=== PATIENT | female | born 1955 | race Caucasian/White ===

== ENCOUNTER 2016-10-31 18:08 | Inpatient (IN) | payer MEDICARE ==
[~2016-10-31] VITALS: Ht 167.6 cm; Wt 77.1 kg
[2016-10-31] VITALS (15 sets, daily range): BP systolic 76–140; BP diastolic 45–92; PULSE 75–87; RESP 15–20; TEMP 97–97.9; O2SAT 92–99
[2016-10-31] MEDS ORDERED: SODIUM CHLORIDE 0.9% FLUSH 10 ML FLUSH IVF PRN ×2 (18:15→21:00)
[2016-10-31 18:43] LABS: AUTOMATED NEUTROPHIL # 12.7 TH/MM3 (1.8-7.7); BASOPHIL % 0.1 % (0.0-2.0); EOSINOPHIL % 0.1 % (0.0-4.0); LYMPHOCYTE # 0.7 TH/MM3 (1.0-4.8); MEAN CELL VOLUME 91.2 FL (80.0-100.0); MEAN CORPUSCULAR HEMOGLOBIN 28.9 PG (27.0-34.0); MEAN CORPUSCULAR HGB CONC 31.7 % (32.0-36.0); NEUT % 89.8 % (16.0-70.0); PLATELET COUNT 217 TH/MM3 (150-450); RED BLOOD COUNT 3.73 MIL/MM3 (4.00-5.30); RED CELL DISTRIBUTION WIDTH 17.8 % (11.6-17.2); WHITE BLOOD COUNT 14.2 TH/MM3 (4.0-11.0)
--- NOTE | 2016-10-31 18:45 | PD ---
HPI . Diarrhea Chief Complaint: GI Complaint Time Seen by Provider: 18:23 Travel History International Travel<30 days: No Contact w/Intl Traveler<30days: No Traveled to known affect area: No History of Present Illness HPI This patient presents with an approximately 24-hour history of diarrhea. She is unable to quantify the diarrhea. She states that she is having very small but frequent stools. She is complaining with diffuse abdominal pain. She denies fever. She denies nausea or vomiting. She denies any urinary tract symptoms. She states that her diarrhea was preceded by constipation. EMS reports hypotension on their arrival. They treated her with a liter of fluid prior to arrival here. They also gave her Zofran. [facility] Past Medical History Medical History: Denies Significant Hx Past Surgical History Surgical History: No Previous Surgery Social History Alcohol Use: No Tobacco Use: Yes Substance Use: No Allergies-Medications (Allergen,Severity, Reaction): Coded Allergies: No Known Allergies (Unverified , 10/31/16) Reported Meds & Prescriptions Reported Meds & Active Scripts Active No Active Prescriptions or Reported Medications Review of Systems Except as stated in HPI: all other systems reviewed are Neg General / Constitutional: No: Fever, Chills Cardiovascular: No: Chest Pain or Discomfort Respiratory: No: Shortness of Breath Gastrointestinal: Positive: Diarrhea, Abdominal Pain, No: Nausea, Vomiting Genitourinary: No: Urgency, Frequency, Dysuria Physical Exam Narrative GENERAL: This patient appears very sleepy. Her speech is a little bit slurred. She is oriented. EMS reports Zofran prior to arrival but no mind altering medications. SKIN: warm/dry. Pale. HEAD: Normocephalic. EYES: Pupils equal and round. No scleral icterus. No injection or drainage. ENT: No nasal bleeding or discharge. Mucous membranes pink and moist. NECK: Trachea midline. Full range of motion without pain.. CARDIOVASCULAR: Regular rate and rhythm. RESPIRATORY: No accessory muscle use. Clear to auscultation. Breath sounds equal bilaterally. GASTROINTESTINAL: Abdomen soft. Diffusely tender. Bowel sounds present. Nondistended. RECTAL: Brown stool. There is no fecal impaction. MUSCULOSKELETAL: No obvious deformities. NEUROLOGICAL: Awake and alert. No obvious cranial nerve deficits. Motor grossly within normal limits. Normal speech. PSYCHIATRIC: Appropriate mood and affect; insight and judgment normal. Data Data Last Documented VS Vital Signs Date Time Temp Pulse Resp B/P (MAP) Pulse Ox O2 Delivery O2 Flow Rate FiO2 10/31/16 18:18 97.0 81 18 105/55 (72) 97 Orders Orders Complete Blood Count With Diff (10/31/16 18:15) Comprehensive Metabolic Panel (10/31/16 18:15) Urinalysis - C+S If Indicated (10/31/16 18:15) Iv Access Insert/Monitor (10/31/16 18:15) Sodium Chloride 0.9% Flush (Ns Flush) (10/31/16 18:15) Alcohol (Ethanol) (10/31/16 18:24) Ct Abd/Pel W Iv Contrast(Rout) (10/31/16 18:25) C Diff Toxin Pcr (10/31/16 18:34) Enteric Path (Stool) (10/31/16 18:34) Labs Laboratory Tests Test 10/31/16 18:30 MDM Medical Decision Making Medical Screen Exam Complete: Yes Emergency Medical Condition: Yes Medical Record Reviewed: Yes (this patient has never been here before.) Differential Diagnosis Differential diagnosis of diarrhea includes but is not limited to early enteritis, bacterial enteritis, antibiotic induced diarrhea, irritable bowel syndrome Narrative Course This patient presents with diarrhea. She was reportedly hypotensive prior to arrival. Her stool is Hemoccult positive. Routine labs have been ordered. She is receiving IV fluids. CT of the abdomen and pelvis has been ordered to rule out diverticulitis or colitis. Her care is being turned over to the oncoming provider at 7 PM. [facility] Point of Care Internal Pos. & Neg. Controls: Passed Fecal Specimen Occult Blood: Positive Diagnosis Primary Impression: Diarrhea Qualified Codes: R19.7 - Diarrhea, unspecified Additional Impressions: Hypotension Qualified Codes: I95.9 - Hypotension, unspecified GI bleed Qualified Codes: K92.2 - Gastrointestinal hemorrhage, unspecified Scripts No Active Prescriptions or Reported Meds Maryann Pederson MD Oct 31, 2016 18:45
[2016-10-31 18:47] LABS: HEMO FLAGS AUTO DIFF
[2016-10-31 19:04] LABS: ANION GAP 14 MEQ/L (5-15); AST (GOT) 37 U/L (15-37); BICARBONATE 12.9 MEQ/L (21.0-32.0); BLOOD UREA NITROGEN 58 MG/DL (7-18); CHLORIDE 113 MEQ/L (98-107); GLOMERULAR FILTRATION RATE 12 ML/MIN (>89); POTASSIUM 5.9 MEQ/L (3.5-5.1); SODIUM (NA) 140 MEQ/L (136-145)
[2016-10-31 19:05] LABS: ALT (GPT) 20 U/L (10-53)
[2016-10-31 19:07] LABS: ALKALINE PHOSPHATASE 663 U/L (45-117); TOTAL BILIRUBIN ADULT 0.5 MG/DL (0.2-1.0)
--- NOTE | 2016-10-31 19:26 | PD ---
Physical Exam Date Seen by Provider: Oct 31, 2016 Time Seen by Provider: 19:18 Narrative Accepted in transfer of care from Data Data Last Documented VS Vital Signs Date Time Temp Pulse Resp B/P (MAP) Pulse Ox O2 Delivery O2 Flow Rate FiO2 10/31/16 20:56 82 19 110/69 (83) 99 Room Air 10/31/16 18:18 97.0 Orders Orders Complete Blood Count With Diff (10/31/16 18:15) Comprehensive Metabolic Panel (10/31/16 18:15) Urinalysis - C+S If Indicated (10/31/16 18:15) Iv Access Insert/Monitor (10/31/16 18:15) Sodium Chloride 0.9% Flush (Ns Flush) (10/31/16 18:15) Alcohol (Ethanol) (10/31/16 18:24) C Diff Toxin Pcr (10/31/16 18:34) Enteric Path (Stool) (10/31/16 18:34) Blood Culture (10/31/16 19:18) Lactic Acid Sepsis Protocol (10/31/16 19:18) Sodium Chlor 0.9% 1000 Ml Inj (Ns 1000 M (10/31/16 19:30) Sodium Chlor 0.9% 1000 Ml Inj (Ns 1000 M (10/31/16 19:30) Ammonia (10/31/16 19:18) Ct Abd/Pel W/O Iv Contrast (10/31/16 ) Act Partial Throm Time (Ptt) (10/31/16 19:18) Prothrombin Time / Inr (Pt) (10/31/16 19:18) Piperacil-Tazo 4.5 Gm Premix (Zosyn 4.5 (10/31/16 19:30) Electrocardiogram (10/31/16 ) Type And Screen (10/31/16 19:26) Urinary Catheter Insert/Apply (10/31/16 19:55) Vancomycin Inj (Vancomycin Inj) (10/31/16 20:00) Sodium Chlor 0.9% 1000 Ml Inj (Ns 1000 M (10/31/16 20:00) Arterial Blood Gas (Abg) (10/31/16 ) Sodium Bicarbonate 8.4% Inj (Sodium Bica (10/31/16 20:00) Norepinephrine-Dextrose Drip (Levophed-D (10/31/16 20:00) Terbutaline Inj (Brethine Inj) (10/31/16 20:00) Thiamine Inj (Thiamine Inj) (10/31/16 20:00) Norepinephrine Inj (Levophed Inj) (10/31/16 20:12) Sodium Bicarbonate 8.4% Inj (Sodium Bica (10/31/16 20:17) Urine Culture (10/31/16 20:00) Sodium, Random Urine (10/31/16 20:11) Creatinine, Random Urine (10/31/16 20:11) Urine For Eosinophils (10/31/16 20:11) Creatine Kinase (Cpk) (10/31/16 20:11) Admit Order (Ed Use Only) (10/31/16 ) ^ Saline Lock (10/31/16 20:54) Resp Oxygen Gonzales C Titrat 1-4 L (10/31/16 ) Notify Dr: Other (10/31/16 20:54) Sodium Chloride 0.9% Flush (Ns Flush) (10/31/16 21:00) Sodium Chloride 0.9% Flush (Ns Flush) (10/31/16 21:00) Lipase (10/31/16 20:11) Magnesium (Mg) (10/31/16 20:11) Labs Laboratory Tests Test 10/31/16 18:30 10/31/16 18:45 10/31/16 19:30 10/31/16 20:00 White Blood Count 14.2 TH/MM3 Red Blood Count 3.73 MIL/MM3 Hemoglobin 10.8 GM/DL Hematocrit 34.0 % Mean Corpuscular Volume 91.2 FL Mean Corpuscular Hemoglobin 28.9 PG Mean Corpuscular Hemoglobin Concent 31.7 % Red Cell Distribution Width 17.8 % Platelet Count 217 TH/MM3 Mean Platelet Volume 9.7 FL Neutrophils (%) (Auto) 89.8 % Lymphocytes (%) (Auto) 5.0 % Monocytes (%) (Auto) 5.0 % Eosinophils (%) (Auto) 0.1 % Basophils (%) (Auto) 0.1 % Neutrophils # (Auto) 12.7 TH/MM3 Lymphocytes # (Auto) 0.7 TH/MM3 Monocytes # (Auto) 0.7 TH/MM3 Eosinophils # (Auto) 0.0 TH/MM3 Basophils # (Auto) 0.0 TH/MM3 CBC Comment AUTO DIFF Differential Total Cells Counted 100 Neutrophils % (Manual) 55 % Band Neutrophils % 38 % Lymphocytes % 1 % Monocytes % 5 % Neutrophils # (Manual) 13.3 TH/MM3 Metamyelocytes 1 % Differential Comment FINAL DIFF MANUAL Platelet Estimate NORMAL Platelet Morphology Comment NORMAL Red Cell Morphology Comment NORMAL Blood Urea Nitrogen 58 MG/DL Creatinine 3.88 MG/DL Random Glucose 72 MG/DL Total Protein 6.9 GM/DL Albumin 2.6 GM/DL Calcium Level 8.7 MG/DL Alkaline Phosphatase 663 U/L Aspartate Amino Transf (AST/SGOT) 37 U/L Alanine Aminotransferase (ALT/SGPT) 20 U/L Total Bilirubin 0.5 MG/DL Sodium Level 140 MEQ/L Potassium Level 5.9 MEQ/L Chloride Level 113 MEQ/L Carbon Dioxide Level 12.9 MEQ/L Anion Gap 14 MEQ/L Estimat Glomerular Filtration Rate 12 ML/MIN Ethyl Alcohol Level LESS THAN 3 MG/DL Stool C. difficile Toxin (PCR) NEGATIVE Stl C. difficile Toxin Epiderm 027 PRESUMPTIVE NEGATIVE Prothrombin Time 11.8 SEC Prothromb Time International Ratio 1.1 RATIO Activated Partial Thromboplast Time 29.5 SEC Lactic Acid Level 2.6 mmol/L Ammonia 19 MCMOL/L Urine Color DARK-YELLOW Urine Turbidity HAZY Urine pH 5.0 Urine Specific [place] 1.025 Urine Protein 30 mg/dL Urine Glucose (UA) NEG mg/dL Urine Ketones NEG mg/dL Urine Occult Blood NEG Urine Nitrite NEG Urine Bilirubin NEG Urine Urobilinogen 2.0 MG/DL Urine Leukocyte Esterase SMALL Urine RBC 3 /hpf Urine WBC 9 /hpf Urine Bacteria FEW /hpf Urine Mucus FEW /lpf Microscopic Urinalysis Comment CULTURE INDICATED MDM Medical Record Reviewed: Yes Supervised Visit with MUSHTAQ: No Interpretation(s) CBC & BMP Diagram 10/31/16 18:30 Total Protein 6.9, Albumin 2.6 L, Calcium Level 8.7, Alkaline Phosphatase 663 H , Aspartate Amino Transf (AST/SGOT) 37, Alanine Aminotransferase (ALT/SGPT) 20, Total Bilirubin 0.5 Vital Signs Date Time Temp Pulse Resp B/P (MAP) Pulse Ox O2 Delivery O2 Flow Rate FiO2 10/31/16 20:56 82 19 110/69 (83) 99 Room Air 10/31/16 20:45 84 17 127/92 (104) 97 Room Air 10/31/16 20:35 87 18 115/65 (82) 96 Room Air 10/31/16 20:30 86 18 125/73 (90) 97 Room Air 10/31/16 20:22 80 79/62 10/31/16 20:20 81 15 79/62 (68) 95 Room Air 10/31/16 20:00 80 19 76/46 (56) 92 Room Air 10/31/16 19:50 78 19 82/45 (57) 97 Room Air 10/31/16 19:21 19 10/31/16 19:10 76 19 93/53 (66) 95 Room Air 10/31/16 19:05 75 18 86/56 (66) 95 Room Air 10/31/16 18:18 97.0 81 18 105/55 (72) 97 Last Impressions Abdomen/Pelvis CT 10/31/16 0000 Signed Impressions: Service Date/Time: Monday, October 31, 2016 20:39 - CONCLUSION: 1. Abnormal bowel gas pattern with areas of wall thickening involving the ascending, transverse and portions of the descending colon. The findings are most consistent with colitis. 2. Bilateral renal calculi left greater than right as well as apparent multiple stones in the distal right ureter with no definite hydronephrosis. 3. Soft tissue mass in the right side of the pelvis agent 3.8 x 2.8 cm in diameter faint areas of calcification. This is nonspecific . 4. Sclerotic foci in the right ilium which is nonspecific. This could represent a large bone island. 5. The study is suboptimal secondary to lack of intravenous and oral contrast. Satinder Joseph MD Differential Diagnosis Accepted in transfer of care from ;please refer to her dictation Narrative Course Accepted in transfer of care from Sepsis Criteria SIRS Criteria (2 or more): WBC > 92605, < 4000 or > 10% bands Sepsis Criteria (SIRS+source): Infect source susp/known (GI) Physician Communication Physician Communication all placed to grounds caretaker; discussed with and seen/accepted for admission by Dr Gaxiola Diagnosis Primary Impression: Diarrhea Qualified Codes: R19.7 - Diarrhea, unspecified Additional Impressions: GI bleed Qualified Codes: K92.2 - Gastrointestinal hemorrhage, unspecified Hypotension Qualified Codes: I95.9 - Hypotension, unspecified Sepsis Qualified Codes: A41.9 - Sepsis, unspecified organism Acute renal failure Qualified Codes: N17.9 - Acute kidney failure, unspecified Hyperkalemia Metabolic acidosis Admitting Information Admitting Physician Requests: Admit Scripts No Active Prescriptions or Reported Meds Devorah Phipps MD Oct 31, 2016 19:26
[2016-10-31] MEDS ORDERED: PIPERACIL-TAZO 4.5 GM PREMIX 100 ML IV ONE (19:30)
[2016-10-31] MEDS ORDERED: SODIUM CHLOR 0.9% 1000 ML INJ 1,000 ML IV ONE ×4 (19:30→21:30)
[2016-10-31 19:32] LABS: BANDS 38 % (0-6); METAMYELOCYTES 1 % (0-1); NEUTROPHIL # MANUAL DIFF 13.3 TH/MM3 (1.8-7.7); POLYS (SEG NEUTROPHILS) 55 % (16-70); WBC DIFF SAMPLE 100
[2016-10-31 19:33] LABS: PLATELET ESTIMATE SMEAR NORMAL (NORMAL); PLATELET MORPHOLOGY NORMAL (NORMAL); SCAN/DIFF FINAL DIFF MANUAL
[2016-10-31 19:52] LABS: C. DIFF EPI 027 PRESUMPTIVE NEGATIVE (NEGATIVE)
[2016-10-31] MEDS ORDERED: VANCOMYCIN INJ 1,000 MG in SODIUM CHLOR 0.9% 250 ML INJ 250 ML IV ONE (20:00)
[2016-10-31] MEDS ORDERED: NOREPINEPHRINE-DEXTROSE DRIP 250 ML IV PRN (20:00)
[2016-10-31] MEDS ORDERED: THIAMINE INJ 100 MG in SODIUM CHLORIDE 0.9% INJ 100 ML IV ONE (20:00)
[2016-10-31] MEDS ORDERED: SODIUM BICARBONATE 8.4% INJ 50 MEQ/50 ML SYR IV PUSH ONE (20:00)
[2016-10-31] MEDS ORDERED: TERBUTALINE INJ 1 MG/ML AMP SQ PRN (20:00)
[2016-10-31] MEDS ORDERED: NOREPINEPHRINE 4 MG/4 ML AMP ONE (20:12)
[2016-10-31 20:15] LABS: APTT (PATIENT) 29.5 SEC (24.3-30.1); INTERNATIONAL NORMALIZED RATIO 1.1 RATIO; PROTHROMBIN TIME - PATIENT 11.8 SEC (9.8-11.6)
[2016-10-31] MEDS ORDERED: SODIUM BICARBONATE 8.4% INJ 50 MEQ/50 ML SYR ONE (20:17)
[2016-10-31 20:33] LABS: BLOOD, URINE NEG (NEG); GLUCOSE,URINE NEG (NEG); KETONE, URINE NEG (NEG); MUCUS URINE FEW /lpf (OCC); NITRITE,URINE NEG (NEG)
[2016-10-31 20:34] LABS: BACTERIA, URINE FEW /hpf; COMMENT (UR) CULTURE INDICATED; CULTURE IF INDICATED CULTURE INDICATED; URINE COLOR DARK-YELLOW (YELLW/STRAW)
[2016-10-31] MEDS ORDERED: SODIUM CHLORIDE 0.9% FLUSH 10 ML FLUSH IV FLUSH SCH (21:00)
--- NOTE | 2016-10-31 21:12 | RADRPT ---
EXAM DATE/TIME: 10/31/2016 20:39 [facility] COMPARISON: No previous studies available for comparison. INDICATIONS : Abdominal pain and diarrhea. ORAL CONTRAST: No oral contrast ingested. RADIATION DOSE: 9.96 CTDIvol (mGy) MEDICAL HISTORY : None SURGICAL HISTORY : None. ENCOUNTER: Initial ACUITY: 1 day PAIN SCALE: 7/10 LOCATION: abdomen TECHNIQUE: Volumetric scanning of the abdomen and pelvis was performed. Using automated exposure control and ad justment of the mA and/or kV according to patient size, radiation dose was kept as low as reasonably achievable to obtain optimal diagnostic quality images. DICOM format image data is available electro nically for review and comparison. FINDINGS: LOWER LUNGS: There is atelectasis in the dependent portions of the lung bases. LIVER: Homogeneous density without lesion. There is no dilation of the biliary tree. Status post cholecyste ctomy. SPLEEN: Normal size without lesion. PANCREAS: Within normal limits. KIDNEYS: Normal in size and shape. There is no mass or hydronephrosis. There are multiple nonobstructing left renal calculi. 2 of the stones measure 6-7 mm in size and are multiple smaller calculi. They're nono bstructing small right renal calculi. The ureters appear unremarkable. There are multiple apparent sm all distal right ureteral calculi. Best seen on the coronal image there are approximately 4 distal ri ght ureteral calculi measuring approximately 2-5 mm in size. The proximal mid ureter are nondilated. ADRENAL GLANDS: Within normal limits. VASCULAR: There is no aortic aneurysm. BOWEL/MESENTERY: No oral contrast was given limiting the sensitivity of the exam there is colonic wall thickening invo lving portions of the ascending colon, transverse colon and proximal descending colon. There is liqui d stool throughout the colon. There multiple loops of nondilated air-containing small bowel with mult iple small air-fluid levels. There is no free fluid or free air. There is a small hiatal hernia. ABDOMINAL WALL: Within normal limits. RETROPERITONEUM: There is no lymphadenopathy. BLADDER: A Agustin catheter is present. There is a small air-fluid level. REPRODUCTIVE: Within normal limits. INGUINAL: There is no lymphadenopathy or hernia. MUSCULOSKELETAL: Osteopenia, degenerative change and scoliosis. The patient is status post left hip arthroplasty. Ther e is a 2.3 x 1.7 cm sclerotic foci in the right ilium. CONCLUSION: 1. Abnormal bowel gas pattern with areas of wall thickening involving the ascending, transverse and p ortions of the descending colon. The findings are most consistent with colitis. 2. Bilateral renal calculi left greater than right as well as apparent multiple stones in the distal right ureter with no definite hydronephrosis. 3. Soft tissue mass in the right side of the pelvis agent 3.8 x 2.8 cm in diameter faint areas of kd cification. This is nonspecific . 4. Sclerotic foci in the right ilium which is nonspecific. This could represent a large bone island. 5. The study is suboptimal secondary to lack of intravenous and oral contrast. Satinder Joseph MD on October 31, 2016 at 21:01 Board Certified Radiologist. This report was verified electronically.
--- NOTE | 2016-10-31 21:22 | HHI.HP ---
HPI Service Critical Care Medicine Primary Care Physician Unknown Admission Diagnosis sepsis' ARF; metabolic acidosis; hyperkalemia; colits Diagnosis: Travel History International Travel<30 Days: No Contact w/Intl Traveler <30 Da: No Traveled to Known Affected Are: No History of Present Illness History obtained through discussion with patient, patient's mother, ED physician. Patient is slightly lethargic and somewhat limited in the medical information that she is able to provide. 61 yo female with PMH of rheumatoid arthritis for which she is on prednisone and disease modifying therapy (Leflunomide), hypothyroidism, hypertension, hyperlipidemia who presents to [facility] emergency department for 1 day history of severe diarrhea. She began having abdominal cramping the evening of 10/30 at around 11 PM . Her mother states that for about 2 hours she nearly continuously passed watery stools that were initially brown and then became black in color. Not bloody or mucoid. She states she then had a near syncopal event and fell on the floor and her mother couldn't get her off the floor for 2 hours. There was no head trauma. She was at the [facility] [place] this occurred and was able to get home around 3 am but was lethargic with remained near-syncopal so was brought in by [facility]. She has been afebrile. Her blood pressure is 86/56 in the ED. She was given 3 L normal saline bolus and then levophed was started. She was given Zosyn and vancomycin in the ED. Patient denies nausea or vomiting. She generally has very poor appetite for several months. She denies known ill contacts. She and her mother have been eating all of the same food and no one else in her household is sick. She has not eaten any fish or shellfish; no raw meats/milks/cheeses; no international travel; no camping. ED workup reveals CT abdomen and pelvis with thickening of the ascending, transverse, descending colon consistent with colitis. C. difficile is negative. She has acute kidney injury with BUN 58, creatinine 3.88. Potassium is 5.9. Alkaline phosphatase is 663 with normal transaminases. Lipase is negative. Lactic acid is 2.6. Denies cough, sore throat, headache, dysuria. Review of Systems Constitutional: COMPLAINS OF: Weight loss Gastrointestinal: COMPLAINS OF: Diarrhea Past Family Social History Allergies: Coded Allergies: esomeprazole (Verified Allergy, Mild, Hives, Rash, 11/02/16) Past Medical History Hypothyroidism Rheumatoid arthritis diagnosed at age of 30 Hypertension Hyperlipidemia Peripheral neuropathy Reportedly she has a history of liver failure. She is lethargic and not able to provide good history of this. Her mother is unclear on the details. Reportedly she is on acyclovir "for her liver" ??HSV hepatitis. Treatment occurred in [place] Past Surgical History Partial thyroidectomy Cholecystectomy Left Hip replacement Knee replacement Right ankle ORIF Reported Medications Her mother does not have the doses of her medications Leflunomide Lyrica Levothyroxin Prednisone 5 mg Atorvastatin Hydrocodone Acyclovir Metoprolol Lisinopril Lyrica Topamax Tramadol Family History Father has asbestosis, CHF, CKD stage III Mother has 5 vessel CABG and pacemaker Social History She is visiting her parents in [place]. 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 She smokes but mom was unable to provide more detailed smoking history No illicit drug use Physical Exam Vital Signs Vital Signs Date Time Temp Pulse Resp B/P (MAP) Pulse Ox O2 Delivery O2 Flow Rate FiO2 10/31/16 20:56 82 19 110/69 (83) 99 Room Air 10/31/16 20:45 84 17 127/92 (104) 97 Room Air 10/31/16 20:35 87 18 115/65 (82) 96 Room Air 10/31/16 20:30 86 18 125/73 (90) 97 Room Air 10/31/16 20:22 80 79/62 10/31/16 20:20 81 15 79/62 (68) 95 Room Air 10/31/16 20:00 80 19 76/46 (56) 92 Room Air 10/31/16 19:50 78 19 82/45 (57) 97 Room Air 10/31/16 19:21 19 10/31/16 19:10 76 19 93/53 (66) 95 Room Air 10/31/16 19:05 75 18 86/56 (66) 95 Room Air 10/31/16 18:18 97.0 81 18 105/55 (72) 97 Physical Exam GENERAL: Lethargic ill-appearing female who is laying in ED stretcher. SKIN: Dry, peripherally cool. HEAD: Atraumatic. Normocephalic. EYES: Pupils equal and round. No scleral icterus. ENT: Mucous membranes dry. NECK: Trachea midline. No JVD. CARDIOVASCULAR: Regular rate and rhythm, sinus rhythm on the monitor. No murmurs rubs or gallops. RESPIRATORY: Clear to auscultation bilaterally with no wheezes Rales or rhonchi GASTROINTESTINAL: Abdomen soft, mildly distended without tympany. Mildly tender throughout without rebound or guarding. Bowel sounds are present. : Agustin in place with eugenio urine output. MUSCULOSKELETAL: Extremities without clubbing, cyanosis. There is an ankle brace in place on the right. She has obvious hand deformities consistent with rheumatoid arthritis NEUROLOGICAL: Lethargi, Speech is not slurred but she is definitely slow to answer questions. Does answer questions of orientation correctly x4. No obvious cranial nerve deficits. Motor grossly within normal limits, moving all extremities without focal deficit. Laboratory Laboratory Tests Test 10/31/16 18:30 10/31/16 18:45 10/31/16 19:30 10/31/16 20:00 White Blood Count 14.2 Red Blood Count 3.73 Hemoglobin 10.8 Hematocrit 34.0 Mean Corpuscular Volume 91.2 Mean Corpuscular Hemoglobin 28.9 Mean Corpuscular Hemoglobin Concent 31.7 Red Cell Distribution Width 17.8 Platelet Count 217 Mean Platelet Volume 9.7 Neutrophils (%) (Auto) 89.8 Lymphocytes (%) (Auto) 5.0 Monocytes (%) (Auto) 5.0 Eosinophils (%) (Auto) 0.1 Basophils (%) (Auto) 0.1 Neutrophils # (Auto) 12.7 Lymphocytes # (Auto) 0.7 Monocytes # (Auto) 0.7 Eosinophils # (Auto) 0.0 Basophils # (Auto) 0.0 CBC Comment AUTO DIFF Differential Total Cells Counted 100 Neutrophils % (Manual) 55 Band Neutrophils % 38 Lymphocytes % 1 Monocytes % 5 Neutrophils # (Manual) 13.3 Metamyelocytes 1 Differential Comment FINAL DIFF MANUAL Platelet Estimate NORMAL Platelet Morphology Comment NORMAL Red Cell Morphology Comment NORMAL Blood Urea Nitrogen 58 Creatinine 3.88 Random Glucose 72 Total Protein 6.9 Albumin 2.6 Calcium Level 8.7 Alkaline Phosphatase 663 Aspartate Amino Transf (AST/SGOT) 37 Alanine Aminotransferase (ALT/SGPT) 20 Total Bilirubin 0.5 Sodium Level 140 Potassium Level 5.9 Chloride Level 113 Carbon Dioxide Level 12.9 Anion Gap 14 Estimat Glomerular Filtration Rate 12 Ethyl Alcohol Level LESS THAN 3 Stool C. difficile Toxin (PCR) NEGATIVE Stl C. difficile Toxin Epiderm 027 PRESUMPTIVE NEGATIVE Prothrombin Time 11.8 Prothromb Time International Ratio 1.1 Activated Partial Thromboplast Time 29.5 Lactic Acid Level 2.6 Ammonia 19 Urine Color DARK-YELLOW Urine Turbidity HAZY Urine pH 5.0 Urine Specific [place] 1.025 Urine Protein 30 Urine Glucose (UA) NEG Urine Ketones NEG Urine Occult Blood NEG Urine Nitrite NEG Urine Bilirubin NEG Urine Urobilinogen 2.0 Urine Leukocyte Esterase SMALL Urine RBC 3 Urine WBC 9 Urine Bacteria FEW Urine Mucus FEW Microscopic Urinalysis Comment CULTURE INDICATED Date/Time Source Procedure Growth Status 10/31/16 19:30 Blood Peripheral Aerobic Blood Culture Pending Received 10/31/16 19:30 Blood Peripheral Anaerobic Blood Culture Pending Received 10/31/16 18:45 Stool Stool Pending Received 10/31/16 20:00 Urine Random Urine Urine Culture Pending Received Result Diagram: 10/31/16182910/31/161829 Septic Shock Reassessment Heart: Regular rate and rhythm Lungs: Clear Skin: Cold Peripheral Pulses: Weak Right Radial Weak Left Radial Weak Left Dorsalis Pedis Weak Right Posterior Tibial Capillary Refill: Sluggish Caprini VTE Risk Assessment Caprini VTE Risk Assessment: Mod/High Risk (score >= 2) VTE Pharm Contraindication: concern for active GI bleeding Caprini Risk Assessment Model Point Value = 1 Point Value = 2 Point Value = 3 Point Value = 5 Age 41-60 Minor surgery BMI > 25 kg/m2 Swollen legs Varicose veins or History of unexplained or recurrent spontaneous Oral contraceptives or hormone replacement Sepsis (< 1 month) Serious lung disease, including pneumonia (< 1 month) Abnormal pulmonary function Acute myocardial infarction Congestive heart failure (< 1 month) History of inflammatory bowel disease Medical patient at bed rest Age 61-74 Arthroscopic surgery Major open surgery (> 45 min) Laparoscopic surgery (> 45 min) Malignancy Confined to bed (> 72 hours) Immobilizing plaster cast Central venous access Age >= 75 History of VTE Family history of VTE Factor V Leiden Prothrombin [id number] Lupus anticoagulant Anticardiolipin antibodies Elevated serum homocysteine Heparin-induced thrombocytopenia Other congenital or acquired thrombophilia Stroke (< 1 month) Elective arthroplasty Hip, pelvis, or leg fracture Acute spinal cord injury (< 1 month) Prophylaxis Regimen Total Risk Factor Score Risk Level Prophylaxis Regimen 0-1 Low Early ambulation 2 Moderate Order ONE of the following: *Sequential Compression Device (SCD) *Heparin 5000 units SQ BID 3-4 Higher Order ONE of the following medications: *Heparin 5000 units SQ TID *Enoxaparin/Lovenox 40 mg SQ daily (WT < 150 kg, CrCl > 30 mL/min) *Enoxaparin/Lovenox 30 mg SQ daily (WT < 150 kg, CrCl > 10-29 mL/min) *Enoxaparin/Lovenox 30 mg SQ BID (WT < 150 kg, CrCl > 30 mL/min) AND/OR *Sequential Compression Device (SCD) 5 or more Highest Order ONE of the following medications: *Heparin 5000 units SQ TID (Preferred with Epidurals) *Enoxaparin/Lovenox 40 mg SQ daily (WT < 150 kg, CrCl > 30 mL/min) *Enoxaparin/Lovenox 30 mg SQ daily (WT < 150 kg, CrCl > 10-29 mL/min) *Enoxaparin/Lovenox 30 mg SQ BID (WT < 150 kg, CrCl > 30 mL/min) AND *Sequential Compression Device (SCD) Assessment and Plan Problem List: (1) Colitis ICD Code: K52.9 - Noninfective gastroenteritis and colitis, unspecified Status: Acute (2) Immunocompromised state ICD Code: D84.9 - Immunodeficiency, unspecified Status: Chronic (3) Hyperkalemia ICD Code: E87.5 - Hyperkalemia Status: Acute (4) Acute renal failure ICD Code: N17.9 - Acute kidney failure, unspecified Status: Acute (5) Diarrhea ICD Code: R19.7 - Diarrhea, unspecified Status: Acute (6) Metabolic acidosis ICD Code: E87.2 - Acidosis Status: Acute (7) Sepsis ICD Code: A41.9 - Sepsis, unspecified organism Status: Acute Assessment and Plan NEURO: Acute toxic metabolic encephalopathy Avoid sedatives were possible. Avoid Tylenol due to reported history of liver failure. High risk of liver failure with Leflunomide. Morphine 2 mg IV every 3 hours as needed for pain RESP: Tobacco abuse Nasal cannula wean as tolerated CV: Hypovolemic shock Lactic acidemia Follow-up lactic acid. Received 3 L normal saline bolus in the ED. Still looks clinically dry. Lungs are clear. We'll give an additional 1 L normal saline bolus D5 0.9 NaCl at 125 mL per hour. Was on norepinephrine 4 g/min in the ED but this was weaned to 2 mcg/m and then weaned off after fourth liter fluid bolus. GI: Diarrhea Colitis Obesity Consult gastroenterology. Immunocompromised, will need colonoscopy if stool studies do not reveal etiology. C. difficile negative CT abdomen and pelvis 10/31/16wall thickening of ascending, Transverse, descending colon consistent with colitis. ?h/o viral hepatitis ?HSV/VZV - states on acyclovir "for her liver" and "h/o liver failure". Maybe able to obtain records from [place] when patient more alert to provide history of where workup was done. FEN/RENAL: Acute dehydration Acute kidney injury Acute hyperkalemia Acute metabolic acidemia Lactic acidemia Multiple nonobstructing left renal calculi Hyperkalemia should improve as acidemia and dehydration improves. She has adequate urine output. Clinically appears volume depleted. FENa c/w intrinsic etiology so may have ATN. Will follow up BMP in a.eden Agustin in place. Monitor intake and output closely Send CPK, urine eos. Platelet count normal,continue to monitor for e/o HUS. No hydronephrosis noted on CT abdomen ID/RHEUM: Severe diarrhea Colitis Immunocompromised state Leukocytosis with bandemia Hold Leflunomide due to concern for sepsis. Blood cultures and Stool cultures with PCR sent. Stool sent for O and P. C. difficile is negative. Received Zosyn and vancomycin in the ED 10/31. Will treat colitis with cefepime 1gram q24 and Flagyl until able to r/o bacteremia from translocation.. Abx would be avoided if positive for Ecoli 0157:H7 though less likely because diarrhea nonbloody and no known outbreak. Consult gastroenterology as per above Consult infectious disease. LINE PATROLMAN: Ovarian mass Has previously been referred to gynecology HEME: Anemia of unknown chronicity ENDO: Hypothyroidism Resume home Synthroid when dose is known. Chronic prednisone use with 5 mg by mouth daily Will hold prednisone currently and use hydrocortisone 50 g IV every 6 hours. Low-dose insulin sliding scale with bedside glucose before meals at bedtime. PROPH: SCDs for DVT prophylaxis. Pharmacologic DVT prophylaxis will be avoided at this time due to concern for bleeding (black stools) Famotidine for stress ulcer prophylaxis ACCESS: Peripheral IV providing adequate access at this time. Patient was on low dose levophed in the ED but this is being weaned off now that fluid resuscitated. Full code Discussed with Dr. Phipps. Patient's mother updated at bedside. Level III H&P Problem Qualifiers (1) Acute renal failure: Qualified Codes: N17.9 - Acute kidney failure, unspecified (2) Diarrhea: Qualified Codes: R19.7 - Diarrhea, unspecified (3) Sepsis: Qualified Codes: A41.9 - Sepsis, unspecified organism Jessie Gaxiola MD Oct 31, 2016 21:22
[2016-10-31 21:26] LABS: MAGNESIUM 3.4 MG/DL (1.5-2.5)
[2016-10-31] MEDS ORDERED: MORPHINE SULFATE 4 MG/ML INJ IV PRN (21:45)
[2016-10-31] MEDS ORDERED: MORPHINE SULFATE 4 MG/ML INJ IV PUSH PRN (21:45)
[2016-10-31] MEDS ORDERED: MISCELLANEOUS NURSING INFORMATION XX SCH (21:45)
[2016-10-31] MEDS ORDERED: CHLORHEXIDINE GLUCONATE 2 % 1 PACK (2 CLOTHS) TOP PRN (21:45)
[2016-10-31] MEDS ORDERED: SODIUM CHLORIDE 0.9% FLUSH 10 ML FLUSH IV FLUSH PRN (21:45)
[2016-10-31] MEDS ORDERED: ONDANSETRON HCL 4 MG/2 ML VIAL IV PRN (21:45)
[2016-10-31 21:49] LABS: BLOOD GAS BASE EXCESS -13.4 mmol/L (-2-2); BLOOD GAS CARBOXYHEMOGLOBIN 0.3 % (0-4); BLOOD GAS HCO3 12 mmol/L (22-26); BLOOD GAS METHEMOGLOBIN 1.5 % (0-2); BLOOD GAS O2 HGB SATURATION 93 % (90-100); BLOOD GAS OXYGEN CONTENT 13.5 Vol % (12.0-20.0); BLOOD GAS PCO2 26 mmHg (38-42); BLOOD GAS PO2 89 mmHG (61-120); BLOOD GAS TOTAL HGB 10.2 G/DL (12.0-16.0); CRITICAL VALUE YES; TEMP CORR TO 98.6
[2016-10-31 21:49] LABS: LACTIC ACID GHOST NOT REPORTABLE
[2016-10-31 21:50] LABS: DRAW SITE RT BRACHIAL; LITER FLOW 2 L/M; NUMBER OF ARTERIAL PUNCTURES 1; OXYGEN DEVICE NASAL CANNULA; STAT YES
[2016-10-31] MEDS ORDERED: CIPROFLOXACIN 400 MG PREMIX 200 ML IV SCH (22:00)
[2016-10-31] MEDS: metroNIDAZOLE 500 MG INJ 100 ML IV SCH (23:00)
[2016-11-01] VITALS (41 sets, daily range): BP systolic 123–144; BP diastolic 59–80; PULSE 79–100; RESP 16–31; TEMP 97.3–98.5; O2SAT 96–99
[2016-11-01] MEDS: DEXT 5%-NACL 0.9% 1000 ML INJ 1,000 ML IV SCH ×2 (00:30→09:14)
[2016-11-01] MEDS: CHLORHEXIDINE GLUCONATE 2 % 1 PACK (2 CLOTHS) TOP SCH (04:00)
[2016-11-01] MEDS ORDERED: DEXTROSE 50% IN WATER 50 ML VIAL(D50) IV PRN (04:45)
[2016-11-01] MEDS ORDERED: GLUCAGON 1 MG/ML VIAL OTHER PRN (04:45)
[2016-11-01] MEDS: HYDROCORTISONE SOD SUCCINATE 100 MG VIAL IV PUSH SCH ×4 (05:00→23:10)
[2016-11-01 05:02] LABS: AUTOMATED NEUTROPHIL # 10.8 TH/MM3 (1.8-7.7); BASOPHIL % 0.2 % (0.0-2.0); HEMATOCRIT 34.2 % (35.0-46.0); HEMO FLAGS DIFF FINAL; LYMPH % 5.3 % (9.0-44.0); LYMPHOCYTE # 0.6 TH/MM3 (1.0-4.8); MEAN CELL VOLUME 92.6 FL (80.0-100.0); MEAN CORPUSCULAR HEMOGLOBIN 29.4 PG (27.0-34.0); MEAN CORPUSCULAR HGB CONC 31.7 % (32.0-36.0); NEUT % 90.5 % (16.0-70.0); PLATELET COUNT 218 TH/MM3 (150-450); RED BLOOD COUNT 3.69 MIL/MM3 (4.00-5.30); RED CELL DISTRIBUTION WIDTH 17.7 % (11.6-17.2); WHITE BLOOD COUNT 11.9 TH/MM3 (4.0-11.0)
[2016-11-01] MEDS: CEFEPIME INJ 1,000 MG in SODIUM CHLORIDE 0.9% INJ 100 ML IV SCH (05:28)
[2016-11-01] MEDS: metroNIDAZOLE 500 MG INJ 100 ML IV SCH ×3 (05:28→21:01)
[2016-11-01] MEDS: INSULIN ASPART SUPPLEMENTAL SCALE SQ SCH ×5 (05:28→23:00)
[2016-11-01 05:30] LABS: ALKALINE PHOSPHATASE 518 U/L (45-117); ALT (GPT) 17 U/L (10-53); ANION GAP 11 MEQ/L (5-15); AST (GOT) 32 U/L (15-37); BICARBONATE 15.4 MEQ/L (21.0-32.0); BLOOD UREA NITROGEN 49 MG/DL (7-18); CHLORIDE 116 MEQ/L (98-107); GLOMERULAR FILTRATION RATE 19 ML/MIN (>89); MAGNESIUM 2.8 MG/DL (1.5-2.5); POTASSIUM 5.2 MEQ/L (3.5-5.1); SODIUM (NA) 142 MEQ/L (136-145); TOTAL BILIRUBIN ADULT 0.3 MG/DL (0.2-1.0)
--- NOTE | 2016-11-01 08:57 | HHI.CCPN ---
Subjective Remarks/Hospital Course 61 yo female with PMH of rheumatoid arthritis for which she is on prednisone and disease modifying therapy (Leflunomide), hypothyroidism, hypertension, hyperlipidemia who presents to [facility] emergency department for 1 day history of severe diarrhea. She began having abdominal cramping the evening of 10/30 at around 11 PM . Her mother states that for about 2 hours she nearly continuously passed watery stools that were initially brown and then became black in color. Not bloody or mucoid. She states she then had a near syncopal event and fell on the floor and her mother couldn't get her off the floor for 2 hours. There was no head trauma. She [place] [facility] [place] and was able to get home around 3 am but was lethargic with remained near-syncopal so was brought in by [facility]. She has been afebrile. Her blood pressure is 86/56 in the ED. She was given 3 L normal saline bolus and then levophed was started. She was given Zosyn and vancomycin in the ED. Patient denies nausea or vomiting. She generally has very poor appetite for several months. She denies known ill contacts. She and her mother have been eating all of the same food and no one else in her household is sick. She has not eaten any fish or shellfish; no raw meats/milks/cheeses; no international travel; no camping. ED workup reveals CT abdomen and pelvis with thickening of the ascending, transverse, descending colon consistent with colitis. C. difficile is negative. She has acute kidney injury with BUN 58, creatinine 3.88. Potassium is 5.9. Alkaline phosphatase is 663 with normal transaminases. Lipase is negative. Lactic acid is 2.6. Denies cough, sore throat, headache, dysuria. 11/01 Patient is lying in bed in NAD. Afebrile. Renal function is improving with Cr: 2.51 today from 3.88. Afebrile. Objective Vital Signs Date Time Temp Pulse Resp B/P (MAP) Pulse Ox O2 Delivery O2 Flow Rate FiO2 11/01/16 08:18 96 Nasal Cannula 4.00 11/01/16 07:00 97.3 80 16 130/77 (94) Intake and Output 9/4/17 9/4/17 9/5/17 08:00 16:00 00:00 Intake Total 891 ml Output Total 1050 ml Balance -159 ml Result Diagram: 11/01/16 0443 11/01/16 0443 Other Results Laboratory Tests Test 10/31/16 18:30 10/31/16 18:45 10/31/16 19:30 10/31/16 20:00 White Blood Count 14.2 TH/MM3 Red Blood Count 3.73 MIL/MM3 Hemoglobin 10.8 GM/DL Hematocrit 34.0 % Mean Corpuscular Volume 91.2 FL Mean Corpuscular Hemoglobin 28.9 PG Mean Corpuscular Hemoglobin Concent 31.7 % Red Cell Distribution Width 17.8 % Platelet Count 217 TH/MM3 Mean Platelet Volume 9.7 FL Neutrophils (%) (Auto) 89.8 % Lymphocytes (%) (Auto) 5.0 % Monocytes (%) (Auto) 5.0 % Eosinophils (%) (Auto) 0.1 % Basophils (%) (Auto) 0.1 % Neutrophils # (Auto) 12.7 TH/MM3 Lymphocytes # (Auto) 0.7 TH/MM3 Monocytes # (Auto) 0.7 TH/MM3 Eosinophils # (Auto) 0.0 TH/MM3 Basophils # (Auto) 0.0 TH/MM3 CBC Comment AUTO DIFF Differential Total Cells Counted 100 Neutrophils % (Manual) 55 % Band Neutrophils % 38 % Lymphocytes % 1 % Monocytes % 5 % Neutrophils # (Manual) 13.3 TH/MM3 Metamyelocytes 1 % Differential Comment FINAL DIFF MANUAL Platelet Estimate NORMAL Platelet Morphology Comment NORMAL Red Cell Morphology Comment NORMAL Blood Urea Nitrogen 58 MG/DL Creatinine 3.88 MG/DL Random Glucose 72 MG/DL Total Protein 6.9 GM/DL Albumin 2.6 GM/DL Calcium Level 8.7 MG/DL Alkaline Phosphatase 663 U/L Aspartate Amino Transf (AST/SGOT) 37 U/L Alanine Aminotransferase (ALT/SGPT) 20 U/L Total Bilirubin 0.5 MG/DL Sodium Level 140 MEQ/L Potassium Level 5.9 MEQ/L Chloride Level 113 MEQ/L Carbon Dioxide Level 12.9 MEQ/L Anion Gap 14 MEQ/L Estimat Glomerular Filtration Rate 12 ML/MIN Magnesium Level 3.4 MG/DL Total Creatine Kinase 64 U/L Lipase 185 U/L Ethyl Alcohol Level LESS THAN 3 MG/DL Stool C. difficile Toxin (PCR) NEGATIVE Stl C. difficile Toxin Epiderm 027 PRESUMPTIVE NEGATIVE Prothrombin Time 11.8 SEC Prothromb Time International Ratio 1.1 RATIO Activated Partial Thromboplast Time 29.5 SEC Lactic Acid Level 2.6 mmol/L Ammonia 19 MCMOL/L Urine Color DARK-YELLOW Urine Turbidity HAZY Urine pH 5.0 Urine Specific [place] 1.025 Urine Protein 30 mg/dL Urine Glucose (UA) NEG mg/dL Urine Ketones NEG mg/dL Urine Occult Blood NEG Urine Nitrite NEG Urine Bilirubin NEG Urine Urobilinogen 2.0 MG/DL Urine Leukocyte Esterase SMALL Urine RBC 3 /hpf Urine WBC 9 /hpf Urine Bacteria FEW /hpf Urine Mucus FEW /lpf Microscopic Urinalysis Comment CULTURE INDICATED Urine Eosinophils NONE SEEN /HPF Urine Random Creatinine 69.2 MG/DL Urine Random Sodium 55 MEQ/L Test 10/31/16 21:30 10/31/16 22:00 11/01/16 04:43 Blood Gas Puncture Site RT BRACHIAL Blood Gas Patient Temperature 98.6 Blood Gas HCO3 12 mmol/L Blood Gas Base Excess -13.4 mmol/L Blood Gas Oxygen Saturation 93 % Arterial Blood pH 7.29 Arterial Blood Partial Pressure CO2 26 mmHg Arterial Blood Partial Pressure O2 89 mmHG Arterial Blood Oxygen Content 13.5 Vol % Arterial Blood Carboxyhemoglobin 0.3 % Arterial Blood Methemoglobin 1.5 % Blood Gas Hemoglobin 10.2 G/DL Oxygen Delivery Device NASAL CANNULA Blood Gas Liter Flow 2 L/M Nasal Screen MRSA (PCR) MRSA NOT DETECTED White Blood Count 11.9 TH/MM3 Red Blood Count 3.69 MIL/MM3 Hemoglobin 10.8 GM/DL Hematocrit 34.2 % Mean Corpuscular Volume 92.6 FL Mean Corpuscular Hemoglobin 29.4 PG Mean Corpuscular Hemoglobin Concent 31.7 % Red Cell Distribution Width 17.7 % Platelet Count 218 TH/MM3 Mean Platelet Volume 9.1 FL Neutrophils (%) (Auto) 90.5 % Lymphocytes (%) (Auto) 5.3 % Monocytes (%) (Auto) 4.0 % Eosinophils (%) (Auto) 0.0 % Basophils (%) (Auto) 0.2 % Neutrophils # (Auto) 10.8 TH/MM3 Lymphocytes # (Auto) 0.6 TH/MM3 Monocytes # (Auto) 0.5 TH/MM3 Eosinophils # (Auto) 0.0 TH/MM3 Basophils # (Auto) 0.0 TH/MM3 CBC Comment DIFF FINAL Differential Comment Blood Urea Nitrogen 49 MG/DL Creatinine 2.51 MG/DL Random Glucose 84 MG/DL Total Protein 6.1 GM/DL Albumin 2.2 GM/DL Calcium Level 7.5 MG/DL Phosphorus Level 5.7 MG/DL Magnesium Level 2.8 MG/DL Alkaline Phosphatase 518 U/L Aspartate Amino Transf (AST/SGOT) 32 U/L Alanine Aminotransferase (ALT/SGPT) 17 U/L Total Bilirubin 0.3 MG/DL Sodium Level 142 MEQ/L Potassium Level 5.2 MEQ/L Chloride Level 116 MEQ/L Carbon Dioxide Level 15.4 MEQ/L Anion Gap 11 MEQ/L Estimat Glomerular Filtration Rate 19 ML/MIN Lactic Acid Level 1.2 mmol/L Imaging Last Impressions Abdomen/Pelvis CT 10/31/16 0000 Signed Impressions: Service Date/Time: Monday, October 31, 2016 20:39 - CONCLUSION: 1. Abnormal bowel gas pattern with areas of wall thickening involving the ascending, transverse and portions of the descending colon. The findings are most consistent with colitis. 2. Bilateral renal calculi left greater than right as well as apparent multiple stones in the distal right ureter with no definite hydronephrosis. 3. Soft tissue mass in the right side of the pelvis agent 3.8 x 2.8 cm in diameter faint areas of calcification. This is nonspecific . 4. Sclerotic foci in the right ilium which is nonspecific. This could represent a large bone island. 5. The study is suboptimal secondary to lack of intravenous and oral contrast. Satinder Joseph MD Objective Remarks GENERAL: Lethargic ill-appearing female laying in bed in no resp distress SKIN: Dry, peripherally cool. HEAD: Atraumatic. Normocephalic. EYES: Pupils equal and round. No scleral icterus. ENT: Mucous membranes dry. NECK: Trachea midline. No JVD. CARDIOVASCULAR: Regular rate and rhythm, sinus rhythm on the monitor. No murmurs rubs or gallops. RESPIRATORY: Clear to auscultation bilaterally with no wheezes Rales or rhonchi GASTROINTESTINAL: Abdomen soft, mildly distended without tympany. Mildly tender throughout without rebound or guarding. Bowel sounds are present. : Agustin in place with eugenio urine output. MUSCULOSKELETAL: Extremities without clubbing, cyanosis. There is an ankle brace in place on the right. Hand deformities consistent with rheumatoid arthritis NEUROLOGICAL: Lethargic, Speech is not slurred but she is definitely slow to answer questions. Does answer questions of orientation correctly x4. No obvious cranial nerve deficits. Motor grossly within normal limits, moving all extremities without focal deficit. A/P Problem List: (1) Colitis ICD Code: K52.9 - Noninfective gastroenteritis and colitis, unspecified (2) Immunocompromised state ICD Code: D84.9 - Immunodeficiency, unspecified (3) Hyperkalemia ICD Code: E87.5 - Hyperkalemia Status: Acute (4) Acute renal failure ICD Code: N17.9 - Acute kidney failure, unspecified Status: Acute (5) Diarrhea ICD Code: R19.7 - Diarrhea, unspecified Status: Acute (6) Metabolic acidosis ICD Code: E87.2 - Acidosis Status: Acute (7) Sepsis ICD Code: A41.9 - Sepsis, unspecified organism Status: Acute Assessment and Plan NEURO: Acute toxic metabolic encephalopathy Monitor neuro status avoid sedatives Morphine 2 mg IV every 3 hours as needed for pain Check CT brain wo contrast r/o acute process Check UDS RESP: Tobacco abuse Continue with oxygen keep sat >92% CV: Lactic acidemia- cleared Received 4 L normal saline bolus since arrival D5 NS at 125 mL per hour. Off norepinephrine. m Monitor HR and BP keep MAP>65mmHg On Hydrocortisone 50mg IV Q6 GI: Diarrhea Colitis Obesity Keep NPO C. difficile negative CT abdomen and pelvis 10/31/16wall thickening of ascending, Transverse, descending colon consistent with colitis. GI consulted FEN/RENAL: Acute dehydration Acute kidney injury Acute hyperkalemia. Acute metabolic acidemia Multiple nonobstructing left renal calculi Monitor renal function, I/O's, avoid nephrotoxins Renal function is improving with hydration. Cr: 2.51 from 3.88 Give 1amp sodium bicarb, change IVF D5W+3amps bicarb @75ml/hr, renal eval Check urine lytes No hydronephrosis noted on CT abdomen ID/RHEUM: Severe diarrhea Colitis Immunocompromised state Leukocytosis with bandemia Hold Leflunomide due to concern for sepsis. Follow up on Blood cultures and Stool cultures. C. difficile is negative. Received Zosyn and vancomycin in the ED 10/31. Continue abx ( Cefepime, Flagyl)monitor for signs of infections ( fever, WBC) ID is consulted LAMINATOR HAND: Ovarian mass Has previously been referred to gynecology HEME: Anemia Monitor CBC ENDO: Hypothyroidism Chronic prednisone use with 5 mg by mouth daily On hydrocortisone 50 g IV every 6 hours. Low-dose SSI with bedside glucose before meals at bedtime. PROPH: SCDs for DVT prophylaxis. Pharmacologic DVT prophylaxis will be avoided at this time due to concern for bleeding (black stools) Famotidine for stress ulcer prophylaxis ACCESS: Peripheral IV providing adequate access at this time. Full code Level III Problem Qualifiers (1) Acute renal failure: Qualified Codes: N17.9 - Acute kidney failure, unspecified (2) Diarrhea: Qualified Codes: R19.7 - Diarrhea, unspecified (3) Sepsis: Qualified Codes: A41.9 - Sepsis, unspecified organism Quincy Rivers MD Nov 01, 2016 08:57
[2016-11-01] MEDS: SODIUM CHLORIDE 0.9% FLUSH 10 ML FLUSH IV FLUSH SCH ×2 (09:00→21:02)
[2016-11-01] MEDS ORDERED: FAMOTIDINE 20 MG/2 ML VIAL IV PUSH SCH (09:00)
[2016-11-01] MEDS ORDERED: SODIUM BICARBONATE 8.4% INJ 50 MEQ/50 ML SYR IV PUSH ONE (09:30)
--- NOTE | 2016-11-01 10:02 | PD.CONS ---
HPI History of Present Illness This is a 61 year old female who presented to the hospital with c/o severe diarrhea x 1 day. Had episode of diarrhea this morning per RN, no blood or dark stool noted. Per EMR, the patient's mother stated that for 2 hours the patient was almost continuously passing watery stools that were initially brown and then became black in color. At home the patient apparently had a near syncopal event and fell on the floor, where the mother was not able to get her up for 2 hours. Patient was brought to the hospital by [facility]. CT of the abdomen in the ED showed thickening of the ascending, transverse, descending colon consistent with colitis. C difficile is negative. Patient reports lower abdominal pain tenderness this morning. No nausea or vomiting. PMH is significant for rheumatoid arthritis (on prednisone and Leflunomide), hypothyroidism, hypertension, and hyperlipidemia. Patient reports she [place] of [place]) about 5 years ago, which was normal. Reports she has never had these symptoms before. Patient is lethargic and poor historian. PFSH Past Medical History PER EMR Hypothyroidism Rheumatoid arthritis diagnosed at age of 30 Hypertension Hyperlipidemia Peripheral neuropathy History of liver failure? On acyclovir "for her liver" ??HSV hepatitis. Treatment occurred in [place] Past Surgical History Partial thyroidectomy Cholecystectomy Left Hip replacement Knee replacement Right ankle ORIF Colonoscopy, 5 years ago, normal Coded Allergies: No Known Allergies (Unverified , 10/31/16) Medications Current Medications Medications (Trade) Dose Ordered Sig/Juan C Route PRN Reason Start Time Stop Time Status Last Admin Dose Admin Sodium Chloride (NS Flush) 2 ml UNSCH PRN IV FLUSH FLUSH AFTER USING IV ACCESS 10/31/16 21:45 Sodium Chloride (NS Flush) 2 ml BID IV FLUSH 11/01/16 09:00 11/01/16 09:00 Morphine Sulfate (Morphine Inj) 2 mg Q3H PRN IV PAIN 3-7 10/31/16 21:45 Famotidine (Pepcid Inj) 20 mg Q12HR IV PUSH 11/01/16 09:00 11/01/16 09:14 Ondansetron HCl (Zofran Inj) 4 mg Q6H PRN IV NAUSEA OR VOMITING 10/31/16 21:45 Miscellaneous Information 1 [id number] XX 10/31/16 21:45 Chlorhexidine Gluconate (Chlorhexidine 2% Cloth) 3 pack Taper DAILY@04 TOP 11/01/16 04:00 10/28/17 03:59 11/01/16 04:00 Chlorhexidine Gluconate (Chlorhexidine 2% Cloth) 3 pack UNSCH PRN TOP HYGIENIC CARE 10/31/16 21:45 Morphine Sulfate (Morphine Inj) 4 mg Q3H PRN IV PUSH PAIN 8-10 10/31/16 21:45 Metronidazole 100 ml @ 100 mls/hr Q8H IV 10/31/16 23:00 11/01/16 05:28 Dextrose/Sodium Chloride 1,000 ml @ 125 mls/hr Q8H IV 11/01/16 00:30 11/01/16 09:14 Hydrocortisone Sodium Succinate (SoluCORTEF INJ) 50 mg Q6H IV PUSH 11/01/16 05:00 11/01/16 05:00 Dextrose (D50w (Vial) Inj) 50 ml UNSCH PRN IV HYPOGLYCEMIA-SEE COMMENTS 11/01/16 04:45 Glucagon (Glucagon Inj) 1 mg UNSCH PRN OTHER HYPOGLYCEMIA-SEE COMMENTS 11/01/16 04:45 Insulin Aspart (NovoLOG SUPPLEMENTAL SCALE) 1 ACHS SLIDING SCALE SQ 11/01/16 07:00 Cefepime HCl 1000 mg/Sodium Chloride 100 ml @ 200 mls/hr Q24H IV 11/01/16 06:00 11/01/16 05:28 Family History Father: Asbestosis, CHF, CKD stage III Mother: 5 vessel CABG and pacemaker Social History Tobacco, yes, amount and duration unknown ETOH, ? Illicit Drugs: Denies Review of Systems Constitutional: COMPLAINS OF: Chills, DENIES: Diaphoretic episodes, Fatigue, Fever, Weight gain, Weight loss, Dizziness, Change in appetite, Night Sweats Endocrine: DENIES: Polydipsia, Polyuria Eyes: DENIES: Blurred vision, Photosensitivity, Double Vision Ears, nose, mouth, throat: DENIES: Hearing loss, Vertigo, Oral lesions, Throat pain, Hoarseness Respiratory: DENIES: Cough, Wheezing, Hemoptysis, Sputum production, Shortness of breath Cardiovascular: DENIES: Chest pain, Palpitations, Syncope, Lower Extremity Edema, Orthopnea, Claudication Gastrointestinal: COMPLAINS OF: Abdominal pain, Diarrhea, DENIES: Black stools , Bloody stools, Constipation, Nausea, Vomiting, Difficulty Swallowing, Anorexia , Odynophagia, Swelling of Abdomen, Heartburn, Hematemesis Genitourinary: DENIES: Urinary frequency, Urinary incontinence, Urgency, Hematuria, Dysuria, Nocturia Musculoskeletal: DENIES: Joint pain, Muscle aches, Stiffness, Joint Swelling, Back pain, Neck pain Integumentary: DENIES: Abnormal pigmentation, Nail changes, Pruritus, Rash, Jaundice Hematologic/lymphatic: DENIES: Bruising, Lymphadenopathy Immunologic/allergic: DENIES: Eczema, Urticaria Neurologic: DENIES: Abnormal gait, Headache, Localized weakness, Paresthesias Psychiatric: DENIES: Anxiety, Confusion, Mood changes, Depression, Agitation, Suicidal Ideation GI Exam Vitals I&O Vital Signs Date Time Temp Pulse Resp B/P (MAP) Pulse Ox O2 Delivery O2 Flow Rate FiO2 11/01/16 08:18 96 Nasal Cannula 4.00 11/01/16 07:00 97.3 80 16 130/77 (94) 98 11/01/16 07:00 80 11/01/16 06:00 80 11/01/16 04:00 80 11/01/16 03:00 97.3 83 27 123/69 (87) 97 11/01/16 02:00 79 11/01/16 00:16 97 Nasal Cannula 4.00 11/01/16 00:00 80 10/31/16 23:00 97.5 82 18 99/69 (79) 93 10/31/16 23:00 82 10/31/16 22:32 97.9 84 20 116/52 (73) 97 10/31/16 22:29 10/31/16 21:50 81 16 129/84 (99) 97 Room Air 10/31/16 21:35 94 Nasal Cannula 2.00 10/31/16 21:23 83 18 140/75 (96) 96 Room Air 10/31/16 20:56 82 19 110/69 (83) 99 Room Air 10/31/16 20:45 84 17 127/92 (104) 97 Room Air 10/31/16 20:35 87 18 115/65 (82) 96 Room Air 10/31/16 20:30 86 18 125/73 (90) 97 Room Air 10/31/16 20:22 80 79/62 10/31/16 20:20 81 15 79/62 (68) 95 Room Air 10/31/16 20:00 80 19 76/46 (56) 92 Room Air 10/31/16 19:50 78 19 82/45 (57) 97 Room Air 10/31/16 19:21 19 10/31/16 19:10 76 19 93/53 (66) 95 Room Air 10/31/16 19:05 75 18 86/56 (66) 95 Room Air 10/31/16 18:18 97.0 81 18 105/55 (72) 97 I/O 10/31/16 10/31/16 10/31/16 11/01/16 11/01/16 11/01/16 07:00 15:00 23:00 07:00 15:00 23:00 Intake Total 891 ml 1000 ml Output Total 1050 ml Balance -159 ml 1000 ml Intake IV Total 891 ml 1000 ml Output Urine Total 1050 ml Stool Total 0 ml Imaging Last Impressions Abdomen/Pelvis CT 10/31/16 0000 Signed Impressions: Service Date/Time: Monday, October 31, 2016 20:39 - CONCLUSION: 1. Abnormal bowel gas pattern with areas of wall thickening involving the ascending, transverse and portions of the descending colon. The findings are most consistent with colitis. 2. Bilateral renal calculi left greater than right as well as apparent multiple stones in the distal right ureter with no definite hydronephrosis. 3. Soft tissue mass in the right side of the pelvis agent 3.8 x 2.8 cm in diameter faint areas of calcification. This is nonspecific . 4. Sclerotic foci in the right ilium which is nonspecific. This could represent a large bone island. 5. The study is suboptimal secondary to lack of intravenous and oral contrast. Satinder Joseph MD Laboratory Test 10/31/16 18:30 10/31/16 18:45 10/31/16 19:30 10/31/16 20:00 White Blood Count 14.2 TH/MM3 Red Blood Count 3.73 MIL/MM3 Hemoglobin 10.8 GM/DL Hematocrit 34.0 % Mean Corpuscular Volume 91.2 FL Mean Corpuscular Hemoglobin 28.9 PG Mean Corpuscular Hemoglobin Concent 31.7 % Red Cell Distribution Width 17.8 % Platelet Count 217 TH/MM3 Mean Platelet Volume 9.7 FL Neutrophils (%) (Auto) 89.8 % Lymphocytes (%) (Auto) 5.0 % Monocytes (%) (Auto) 5.0 % Eosinophils (%) (Auto) 0.1 % Basophils (%) (Auto) 0.1 % Neutrophils # (Auto) 12.7 TH/MM3 Lymphocytes # (Auto) 0.7 TH/MM3 Monocytes # (Auto) 0.7 TH/MM3 Eosinophils # (Auto) 0.0 TH/MM3 Basophils # (Auto) 0.0 TH/MM3 CBC Comment AUTO DIFF Differential Total Cells Counted 100 Neutrophils % (Manual) 55 % Band Neutrophils % 38 % Lymphocytes % 1 % Monocytes % 5 % Neutrophils # (Manual) 13.3 TH/MM3 Metamyelocytes 1 % Differential Comment FINAL DIFF MANUAL Platelet Estimate NORMAL Platelet Morphology Comment NORMAL Red Cell Morphology Comment NORMAL Blood Urea Nitrogen 58 MG/DL Creatinine 3.88 MG/DL Random Glucose 72 MG/DL Total Protein 6.9 GM/DL Albumin 2.6 GM/DL Calcium Level 8.7 MG/DL Alkaline Phosphatase 663 U/L Aspartate Amino Transf (AST/SGOT) 37 U/L Alanine Aminotransferase (ALT/SGPT) 20 U/L Total Bilirubin 0.5 MG/DL Sodium Level 140 MEQ/L Potassium Level 5.9 MEQ/L Chloride Level 113 MEQ/L Carbon Dioxide Level 12.9 MEQ/L Anion Gap 14 MEQ/L Estimat Glomerular Filtration Rate 12 ML/MIN Magnesium Level 3.4 MG/DL Total Creatine Kinase 64 U/L Lipase 185 U/L Ethyl Alcohol Level LESS THAN 3 MG/DL Stool C. difficile Toxin (PCR) NEGATIVE Stl C. difficile Toxin Epiderm 027 PRESUMPTIVE NEGATIVE Prothrombin Time 11.8 SEC Prothromb Time International Ratio 1.1 RATIO Activated Partial Thromboplast Time 29.5 SEC Lactic Acid Level 2.6 mmol/L Ammonia 19 MCMOL/L Urine Color DARK-YELLOW Urine Turbidity HAZY Urine pH 5.0 Urine Specific [place] 1.025 Urine Protein 30 mg/dL Urine Glucose (UA) NEG mg/dL Urine Ketones NEG mg/dL Urine Occult Blood NEG Urine Nitrite NEG Urine Bilirubin NEG Urine Urobilinogen 2.0 MG/DL Urine Leukocyte Esterase SMALL Urine RBC 3 /hpf Urine WBC 9 /hpf Urine Bacteria FEW /hpf Urine Mucus FEW /lpf Microscopic Urinalysis Comment CULTURE INDICATED Urine Eosinophils NONE SEEN /HPF Urine Random Creatinine 69.2 MG/DL Urine Random Sodium 55 MEQ/L Test 10/31/16 21:30 10/31/16 22:00 11/01/16 04:43 Blood Gas Puncture Site RT BRACHIAL Blood Gas Patient Temperature 98.6 Blood Gas HCO3 12 mmol/L Blood Gas Base Excess -13.4 mmol/L Blood Gas Oxygen Saturation 93 % Arterial Blood pH 7.29 Arterial Blood Partial Pressure CO2 26 mmHg Arterial Blood Partial Pressure O2 89 mmHG Arterial Blood Oxygen Content 13.5 Vol % Arterial Blood Carboxyhemoglobin 0.3 % Arterial Blood Methemoglobin 1.5 % Blood Gas Hemoglobin 10.2 G/DL Oxygen Delivery Device NASAL CANNULA Blood Gas Liter Flow 2 L/M Nasal Screen MRSA (PCR) MRSA NOT DETECTED White Blood Count 11.9 TH/MM3 Red Blood Count 3.69 MIL/MM3 Hemoglobin 10.8 GM/DL Hematocrit 34.2 % Mean Corpuscular Volume 92.6 FL Mean Corpuscular Hemoglobin 29.4 PG Mean Corpuscular Hemoglobin Concent 31.7 % Red Cell Distribution Width 17.7 % Platelet Count 218 TH/MM3 Mean Platelet Volume 9.1 FL Neutrophils (%) (Auto) 90.5 % Lymphocytes (%) (Auto) 5.3 % Monocytes (%) (Auto) 4.0 % Eosinophils (%) (Auto) 0.0 % Basophils (%) (Auto) 0.2 % Neutrophils # (Auto) 10.8 TH/MM3 Lymphocytes # (Auto) 0.6 TH/MM3 Monocytes # (Auto) 0.5 TH/MM3 Eosinophils # (Auto) 0.0 TH/MM3 Basophils # (Auto) 0.0 TH/MM3 CBC Comment DIFF FINAL Differential Comment Blood Urea Nitrogen 49 MG/DL Creatinine 2.51 MG/DL Random Glucose 84 MG/DL Total Protein 6.1 GM/DL Albumin 2.2 GM/DL Calcium Level 7.5 MG/DL Phosphorus Level 5.7 MG/DL Magnesium Level 2.8 MG/DL Alkaline Phosphatase 518 U/L Aspartate Amino Transf (AST/SGOT) 32 U/L Alanine Aminotransferase (ALT/SGPT) 17 U/L Total Bilirubin 0.3 MG/DL Sodium Level 142 MEQ/L Potassium Level 5.2 MEQ/L Chloride Level 116 MEQ/L Carbon Dioxide Level 15.4 MEQ/L Anion Gap 11 MEQ/L Estimat Glomerular Filtration Rate 19 ML/MIN Lactic Acid Level 1.2 mmol/L Date/Time Source Procedure Growth Status 10/31/16 19:30 Blood Peripheral Aerobic Blood Culture Pending Received 10/31/16 19:30 Blood Peripheral Anaerobic Blood Culture Pending Received 10/31/16 18:45 Stool Stool Cryptosporidium Exam Pending Received 10/31/16 18:45 Stool Stool Giardia Antigen (MARISA) Pending Received 10/31/16 20:00 Urine Random Urine Urine Culture Pending Received Physical Examination HEENT: Normocephalic; atraumatic; no jaundice. NECK: Neck is supple, no JVD, no lymphadenopathy. CHEST: CTA CARDIAC: RRR ABDOMEN: Soft, mildly distended, mild TTP at lower abdomen; no hepatosplenomegaly; bowel sounds are present. EXTREMITIES: No clubbing, cyanosis, or edema. SKIN: Dry WEIGH AND CHARGE WORKER: Lethargic Assessment and Plan Plan ASSESSMENT: Diarrhea, CT Abdomen/Pelvis 10/31/16--1. Abnormal bowel gas pattern with areas of wall thickening involving the ascending, transverse and portions of the descending colon. The findings are most consistent with colitis. 2. Bilateral renal calculi left greater than right as well as apparent multiple stones in the distal right ureter with no definite hydronephrosis. 3. Soft tissue mass in the right side of the pelvis agent 3.8 x 2.8 cm in diameter faint areas of calcification. This is nonspecific 4. Sclerotic foci in the right ilium which is nonspecific. This could represent a large bone island. 5. The study is suboptimal secondary to lack of intravenous and oral contrast. C diff negative. Stool studies pending. PLAN: - Await stool studies - Plan for colonoscopy, if stool studies are negative - Monitor labs - Supportive care - Further recommendations to follow based on results of above. Patient seen and examined by Dr. Kelly and myself and this note is written on his behalf. Hermelinda Dejesus Nov 01, 2016 10:02
[2016-11-01] MEDS ORDERED: SODIUM POLYSTYRENE SULFONATE SUSP 15 GM/60 ML CUP PO ONE (15:00)
[2016-11-01] MEDS ORDERED: DEXTROSE 50% IN WATER 50 ML SYRINGE IV PUSH ONE (15:00)
[2016-11-01] MEDS ORDERED: INSULIN HUMAN REGULAR 1,000 UNITS/10 ML VIAL IV PUSH ONE (15:00)
[2016-11-01 15:10] LABS: BLOOD GAS BASE EXCESS -12.2 mmol/L (-2-2); BLOOD GAS CARBOXYHEMOGLOBIN 0.6 % (0-4); BLOOD GAS HCO3 13 mmol/L (22-26); BLOOD GAS O2 HGB SATURATION 94 % (90-100); BLOOD GAS OXYGEN CONTENT 14.2 Vol % (12.0-20.0); BLOOD GAS PCO2 25 mmHg (38-42); BLOOD GAS PO2 111 mmHg (61-120); BLOOD GAS TOTAL HGB 10.6 G/DL (12.0-16.0); CRITICAL VALUE YES; DRAW SITE RT RADIAL; LITER FLOW 4 L/M; NUMBER OF ARTERIAL PUNCTURES 1; OXYGEN DEVICE NASAL CANNULA; STAT NO; TEMP CORR TO 98.6; ULNAR PULSE PRESENT
--- NOTE | 2016-11-01 15:33 | RADRPT ---
EXAM DATE/TIME: 11/01/2016 15:20 [place] COMPARISON: No previous studies available for comparison. INDICATIONS : Change in mental status, confused and lethargic. RADIATION DOSE: 28.23 CTDIvol (mGy) MEDICAL HISTORY : None SURGICAL HISTORY : None. ENCOUNTER: Initial ACUITY: 1 day PAIN SCALE: 0/10 LOCATION: cranial TECHNIQUE: Multiple contiguous axial images were obtained of the head. Using automated exposure control and adj ustment of the mA and/or kV according to patient size, radiation dose was kept as low as reasonably a chievable to obtain optimal diagnostic quality images. DICOM format image data is available electro nically for review and comparison. FINDINGS: CEREBRUM: The ventricles are normal for age. No evidence of midline shift, mass lesion, hemorrhage or acute in farction. No extra-axial fluid collections are seen. POSTERIOR FOSSA: The cerebellum and brainstem are intact. The 4th ventricle is midline. The cerebellopontine angle i s unremarkable. EXTRACRANIAL: The visualized portion of the orbits is intact. SKULL: The calvaria is intact. No evidence of skull fracture. CONCLUSION: Negative for an acute process. Jason Zafar MD FACR on November 01, 2016 at 15:31 Board Certified Radiologist. This report was verified electronically.
[2016-11-01] MEDS: SODIUM BICARBONATE 8.4% INJ 150 MEQ in DEXTROSE 5% IN WATE 1000ML INJ 1,000 ML IV SCH ×2 (15:50)
--- NOTE | 2016-11-01 17:01 | PD.CONS ---
[facility] Service Nephrology Consult Requested By Dr. Rivers Reason for Consult Acute renal failure Primary Care Physician Unknown History of Present Illness Patient is a 61-year-old white female with history of rheumatoid arthritis on prednisone and leflunomide who had watery diarrhea prior to admission which continues and she had hypotension and dizziness had syncope, brought in with hypotension given 3 L of fluid boluses and creatinine was 3.3 which declined to 2.5, she is still slow to respond however who know her age, IV fluids were given currently on D5W with 3 Amps of sodium bicarbonate at 75 cc an hour Review of Systems Constitutional: COMPLAINS OF: Fatigue Gastrointestinal: COMPLAINS OF: Diarrhea Psychiatric: COMPLAINS OF: Confusion Past Family Social History Allergies: Coded Allergies: esomeprazole (Verified Allergy, Mild, Hives, Rash, 11/02/16) Past Medical History hypothyroidism Rheumatoid arthritis diagnosed at age of 30 Hypertension Hyperlipidemia Peripheral neuropathy Reportedly she has a history of liver failure. She is lethargic and not able to provide good history of this. Her mother is unclear on the details. Reportedly she is on acyclovir "for her liver" ??HSV hepatitis. Treatment occurred in [place] Past Surgical History Partial thyroidectomy Cholecystectomy Left Hip replacement Knee replacement Right ankle ORIF Reported Medications Reported Meds & Active Scripts Active No Active Prescriptions or Reported Medications Active Ordered Medications Current Medications Medications (Trade) Dose Ordered Sig/Juan C Route Start Time Stop Time Status Last Admin (NS Flush) 2 ml UNSCH PRN IV FLUSH 10/31/16 21:45 (NS Flush) 2 ml BID IV FLUSH 11/01/16 09:00 11/01/16 09:00 (Morphine Inj) 2 mg Q3H PRN IV 10/31/16 21:45 (Zofran Inj) 4 mg Q6H PRN IV 10/31/16 21:45 Miscellaneous Information 1 [id number] XX 10/31/16 21:45 (Chlorhexidine 2% Cloth) 3 pack Taper DAILY@04 TOP 11/01/16 04:00 10/28/17 03:59 11/01/16 04:00 (Chlorhexidine 2% Cloth) 3 pack UNSCH PRN TOP 10/31/16 21:45 (Morphine Inj) 4 mg Q3H PRN IV PUSH 10/31/16 21:45 Metronidazole 100 ml @ 100 mls/hr Q8H IV 10/31/16 23:00 11/01/16 16:18 Dextrose/Sodium Chloride 1,000 ml @ 125 mls/hr Q8H IV 11/01/16 00:30 11/01/16 09:14 (SoluCORTEF INJ) 50 mg Q6H IV PUSH 11/01/16 05:00 11/01/16 16:19 (D50w (Vial) Inj) 50 ml UNSCH PRN IV 11/01/16 04:45 (Glucagon Inj) 1 mg UNSCH PRN OTHER 11/01/16 04:45 Cefepime HCl 1000 mg/Sodium Chloride 100 ml @ 200 mls/hr Q24H IV 11/01/16 06:00 11/01/16 05:28 (Pepcid Inj) 10 mg Q12HR IV PUSH 11/01/16 21:00 (NovoLOG SUPPLEMENTAL SCALE) 1 Q4H SQ 11/01/16 15:00 Sodium Bicarbonate 150 meq/Dextrose 1,150 ml @ 75 mls/hr [id number] IV 11/01/16 17:00 11/01/16 15:50 Family History Noncontributory Social History Denies smoking or alcohol use Physical Exam Vital Signs Vital Signs Date Time Temp Pulse Resp B/P (MAP) Pulse Ox O2 Delivery O2 Flow Rate FiO2 11/01/16 12:53 81 11/01/16 12:30 81 11/01/16 12:16 80 11/01/16 12:00 80 11/01/16 11:45 80 11/01/16 11:30 80 11/01/16 11:15 80 11/01/16 11:15 80 16 139/60 (86) 99 11/01/16 11:00 80 17 131/59 (83) 99 11/01/16 11:00 97.9 11/01/16 11:00 80 11/01/16 10:46 80 11/01/16 10:30 80 11/01/16 10:15 82 11/01/16 10:00 80 11/01/16 09:45 80 11/01/16 09:34 80 11/01/16 09:19 82 11/01/16 09:00 84 11/01/16 08:45 80 11/01/16 08:30 80 11/01/16 08:18 96 Nasal Cannula 4.00 11/01/16 08:15 80 11/01/16 08:00 80 11/01/16 08:00 80 11/01/16 07:00 97.3 80 16 130/77 (94) 98 11/01/16 07:00 80 11/01/16 06:00 80 11/01/16 04:00 80 11/01/16 03:00 97.3 83 27 123/69 (87) 97 11/01/16 02:00 79 11/01/16 00:16 97 Nasal Cannula 4.00 11/01/16 00:00 80 10/31/16 23:00 97.5 82 18 99/69 (79) 93 10/31/16 23:00 82 10/31/16 22:32 97.9 84 20 116/52 (73) 97 10/31/16 22:29 10/31/16 21:50 81 16 129/84 (99) 97 Room Air 10/31/16 21:35 94 Nasal Cannula 2.00 10/31/16 21:23 83 18 140/75 (96) 96 Room Air 10/31/16 20:56 82 19 110/69 (83) 99 Room Air 10/31/16 20:45 84 17 127/92 (104) 97 Room Air 10/31/16 20:35 87 18 115/65 (82) 96 Room Air 10/31/16 20:30 86 18 125/73 (90) 97 Room Air 10/31/16 20:22 80 79/62 10/31/16 20:20 81 15 79/62 (68) 95 Room Air 10/31/16 20:00 80 19 76/46 (56) 92 Room Air 10/31/16 19:50 78 19 82/45 (57) 97 Room Air 10/31/16 19:21 19 10/31/16 19:10 76 19 93/53 (66) 95 Room Air 10/31/16 19:05 75 18 86/56 (66) 95 Room Air 10/31/16 18:18 97.0 81 18 105/55 (72) 97 Physical Exam GENERAL: Well-nourished, well-developed patient. SKIN: Warm and dry. HEAD: Normocephalic. EYES: No scleral icterus. No injection or drainage. NECK: Supple, trachea midline. No JVD or lymphadenopathy. CARDIOVASCULAR: Regular rate and rhythm without murmurs, gallops, or rubs. RESPIRATORY: Breath sounds equal bilaterally. No accessory muscle use. GASTROINTESTINAL: Abdomen soft, non-tender, nondistended. EXTREMITIES: No cyanosis, or edema. NEUROLOGICAL: Awake, slow and groggy Laboratory Laboratory Tests Test 10/31/16 18:30 10/31/16 18:45 10/31/16 19:30 10/31/16 20:00 White Blood Count 14.2 Red Blood Count 3.73 Hemoglobin 10.8 Hematocrit 34.0 Mean Corpuscular Volume 91.2 Mean Corpuscular Hemoglobin 28.9 Mean Corpuscular Hemoglobin Concent 31.7 Red Cell Distribution Width 17.8 Platelet Count 217 Mean Platelet Volume 9.7 Neutrophils (%) (Auto) 89.8 Lymphocytes (%) (Auto) 5.0 Monocytes (%) (Auto) 5.0 Eosinophils (%) (Auto) 0.1 Basophils (%) (Auto) 0.1 Neutrophils # (Auto) 12.7 Lymphocytes # (Auto) 0.7 Monocytes # (Auto) 0.7 Eosinophils # (Auto) 0.0 Basophils # (Auto) 0.0 CBC Comment AUTO DIFF Differential Total Cells Counted 100 Neutrophils % (Manual) 55 Band Neutrophils % 38 Lymphocytes % 1 Monocytes % 5 Neutrophils # (Manual) 13.3 Metamyelocytes 1 Differential Comment FINAL DIFF MANUAL Platelet Estimate NORMAL Platelet Morphology Comment NORMAL Red Cell Morphology Comment NORMAL Blood Urea Nitrogen 58 Creatinine 3.88 Random Glucose 72 Total Protein 6.9 Albumin 2.6 Calcium Level 8.7 Alkaline Phosphatase 663 Aspartate Amino Transf (AST/SGOT) 37 Alanine Aminotransferase (ALT/SGPT) 20 Total Bilirubin 0.5 Sodium Level 140 Potassium Level 5.9 Chloride Level 113 Carbon Dioxide Level 12.9 Anion Gap 14 Estimat Glomerular Filtration Rate 12 Magnesium Level 3.4 Total Creatine Kinase 64 Lipase 185 Ethyl Alcohol Level LESS THAN 3 Stool C. difficile Toxin (PCR) NEGATIVE Stl C. difficile Toxin Epiderm 027 PRESUMPTIVE NEGATIVE Prothrombin Time 11.8 Prothromb Time International Ratio 1.1 Activated Partial Thromboplast Time 29.5 Lactic Acid Level 2.6 Ammonia 19 Urine Color DARK-YELLOW Urine Turbidity HAZY Urine pH 5.0 Urine Specific [place] 1.025 Urine Protein 30 Urine Glucose (UA) NEG Urine Ketones NEG Urine Occult Blood NEG Urine Nitrite NEG Urine Bilirubin NEG Urine Urobilinogen 2.0 Urine Leukocyte Esterase SMALL Urine RBC 3 Urine WBC 9 Urine Bacteria FEW Urine Mucus FEW Microscopic Urinalysis Comment CULTURE INDICATED Urine Eosinophils NONE SEEN Urine Random Creatinine 69.2 Urine Random Sodium 55 Test 10/31/16 21:30 10/31/16 22:00 11/01/16 04:43 11/01/16 12:33 Blood Gas Puncture Site RT BRACHIAL Blood Gas Patient Temperature 98.6 Blood Gas HCO3 12 Blood Gas Base Excess -13.4 Blood Gas Oxygen Saturation 93 Arterial Blood pH 7.29 Arterial Blood Partial Pressure CO2 26 Arterial Blood Partial Pressure O2 89 Arterial Blood Oxygen Content 13.5 Arterial Blood Carboxyhemoglobin 0.3 Arterial Blood Methemoglobin 1.5 Blood Gas Hemoglobin 10.2 Oxygen Delivery Device NASAL CANNULA Blood Gas Liter Flow 2 Nasal Screen MRSA (PCR) MRSA NOT DETECTED White Blood Count 11.9 Red Blood Count 3.69 Hemoglobin 10.8 Hematocrit 34.2 Mean Corpuscular Volume 92.6 Mean Corpuscular Hemoglobin 29.4 Mean Corpuscular Hemoglobin Concent 31.7 Red Cell Distribution Width 17.7 Platelet Count 218 Mean Platelet Volume 9.1 Neutrophils (%) (Auto) 90.5 Lymphocytes (%) (Auto) 5.3 Monocytes (%) (Auto) 4.0 Eosinophils (%) (Auto) 0.0 Basophils (%) (Auto) 0.2 Neutrophils # (Auto) 10.8 Lymphocytes # (Auto) 0.6 Monocytes # (Auto) 0.5 Eosinophils # (Auto) 0.0 Basophils # (Auto) 0.0 CBC Comment DIFF FINAL Differential Comment Blood Urea Nitrogen 49 Creatinine 2.51 Random Glucose 84 Total Protein 6.1 Albumin 2.2 Calcium Level 7.5 Phosphorus Level 5.7 Magnesium Level 2.8 Alkaline Phosphatase 518 Aspartate Amino Transf (AST/SGOT) 32 Alanine Aminotransferase (ALT/SGPT) 17 Total Bilirubin 0.3 Sodium Level 142 Potassium Level 5.2 5.4 Chloride Level 116 Carbon Dioxide Level 15.4 Anion Gap 11 Estimat Glomerular Filtration Rate 19 Lactic Acid Level 1.2 Test 11/01/16 13:48 11/01/16 15:03 Urine Random Sodium 70 Urine Random Potassium 48 Urine Random Chloride 69 Urine Opiates Screen NEG Urine Barbiturates Screen NEG Urine Amphetamines Screen NEG Urine Benzodiazepines Screen NEG Urine Cocaine Screen NEG Urine Cannabinoids Screen NEG Blood Gas Puncture Site RT RADIAL Blood Gas Patient Temperature 98.6 Blood Gas HCO3 13 Blood Gas Base Excess -12.2 Blood Gas Oxygen Saturation 94 Arterial Blood pH 7.32 Arterial Blood Partial Pressure CO2 25 Arterial Blood Partial Pressure O2 111 Arterial Blood Oxygen Content 14.2 Arterial Blood Carboxyhemoglobin 0.6 Arterial Blood Methemoglobin 2.0 Blood Gas Hemoglobin 10.6 Oxygen Delivery Device NASAL CANNULA Blood Gas Liter Flow 4 Date/Time Source Procedure Growth Status 10/31/16 19:30 Blood Peripheral Aerobic Blood Culture - Preliminary NO GROWTH IN 1 DAY Resulted 10/31/16 19:30 Blood Peripheral Anaerobic Blood Culture - Preliminary NO GROWTH IN 1 DAY Resulted 10/31/16 18:45 Stool Stool Cryptosporidium Exam - Final NEGATIVE - NO CRYPTOSPORIDIUM ANTIGEN... Complete 10/31/16 18:45 Stool Stool Giardia Antigen (MARISA) - Final NEGATIVE - NO GIARDIA ANTIGEN DETECTE... Complete 10/31/16 20:00 Urine Random Urine Urine Culture - Preliminary NO GROWTH IN 24 HOURS. Resulted Result Diagram: 11/01/16 0443 11/01/16 1233 Imaging Last Impressions Head CT 11/01/16 0000 Signed Impressions: Service Date/Time: Tuesday, November 01, 2016 15:20 - CONCLUSION: Negative for an acute process. Jason Zafar MD FACR Abdomen/Pelvis CT 10/31/16 0000 Signed Impressions: Service Date/Time: Monday, October 31, 2016 20:39 - CONCLUSION: 1. Abnormal bowel gas pattern with areas of wall thickening involving the ascending, transverse and portions of the descending colon. The findings are most consistent with colitis. 2. Bilateral renal calculi left greater than right as well as apparent multiple stones in the distal right ureter with no definite hydronephrosis. 3. Soft tissue mass in the right side of the pelvis agent 3.8 x 2.8 cm in diameter faint areas of calcification. This is nonspecific . 4. Sclerotic foci in the right ilium which is nonspecific. This could represent a large bone island. 5. The study is suboptimal secondary to lack of intravenous and oral contrast. Satinder Joseph MD Assessment and Plan Problem List: (1) Acute renal failure ICD Codes: N17.9 - Acute kidney failure, unspecified Status: Acute Plan: Patient appears to have dehydration, CT scan revealed kidney stones non obstructive, however patient is confused and unable to provide clear history Continue with IV hydration and bicarbonate drip, I will increase the rate to 125 cc an hour Monitor BMP Avoid nephrotoxic (2) Hyperkalemia ICD Codes: E87.5 - Hyperkalemia Status: Acute Plan: Likely due to metabolic acidosis continue with bicarbonate drip (3) Diarrhea ICD Codes: R19.7 - Diarrhea, unspecified Status: Acute Plan: Is watery in nature and awaiting cultures (4) Metabolic acidosis ICD Codes: E87.2 - Acidosis Status: Acute Plan: Due to GI losses non-anion gap (5) Hypotension ICD Codes: I95.9 - Hypotension, unspecified Status: Acute Plan: check TSH T4 Problem Qualifiers (1) Acute renal failure: Qualified Codes: N17.9 - Acute kidney failure, unspecified (2) Diarrhea: Qualified Codes: R19.7 - Diarrhea, unspecified (3) Hypotension: Qualified Codes: I95.9 - Hypotension, unspecified Jorge Schroeder MD Nov 01, 2016 17:01
[2016-11-01 17:53] LABS: BICARBONATE 15.2 MEQ/L (21.0-32.0); POTASSIUM 4.6 MEQ/L (3.5-5.1)
[2016-11-01 18:27] LABS: CALCIUM-PROTEIN CORRECTED 7.8 MG/DL (8.5-10.1)
[2016-11-01 19:16] LABS: THYROXINE (T4) 1.8 MCG/DL (4.8-13.9)
--- NOTE | 2016-11-01 19:55 | PD.ID.CON ---
History of Present Illness Service ID Consult Requested By Dr Garsia Reason for Consult colitis Primary Care Physician Unknown Diagnoses: History of Present Illness 61 yo female with h/o rhematoid arthritis on DMARD/ prednisone presetned with mental status change,abdominal pain,diarrhea for few days She remains quite lethargic and intermittently confused lactic acid was elevated on presentation She presetned hypotensive and was IV fluid resuscitated and was on pressors, but now she is off Initially pt was started on zosyn and vancomycin, now switched to cefepime CT showed colitis, C.diff was negative Pt cont to have liquid diarrhea, having cramps in abdomen No blood in the stool Pt was seen by GI, colscopy is planned for toorrow She also has ED on presentation, but her cratinine is trending down, 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 She is lethargic and not able to provide good history of this. Her mother is unclear on the details. Reportedly she is on acyclovir "for her liver" ??HSV hepatitis. Treatment occurred in [place] Past Surgical History Partial thyroidectomy Cholecystectomy Left Hip replacement Knee replacement Right ankle ORIF Active Ordered Medications Medications where reviewed in EMR Antibiotics Include: cefepime Family History Father has asbestosis, CHF, CKD stage III Mother has 5 vessel CABG and pacemaker Social History She is visiting her parents in [place]. 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 admits to smoking No illicit drug use Physical Exam Vital Signs Vital Signs Date Time Temp Pulse Resp B/P (MAP) Pulse Ox O2 Delivery O2 Flow Rate FiO2 11/01/16 17:00 86 11/01/16 17:00 86 11/01/16 17:00 86 23 99 11/01/16 16:00 94 25 96 11/01/16 16:00 94 11/01/16 16:00 94 11/01/16 15:41 85 11/01/16 15:41 85 18 123/77 (92) 99 11/01/16 15:41 85 11/01/16 15:00 84 11/01/16 15:00 84 11/01/16 15:00 98.5 11/01/16 15:00 84 31 125/73 (90) 99 11/01/16 14:45 83 11/01/16 14:30 83 11/01/16 14:18 83 11/01/16 14:00 83 11/01/16 12:53 81 11/01/16 12:30 81 11/01/16 12:16 80 11/01/16 12:00 80 11/01/16 11:45 80 11/01/16 11:30 80 11/01/16 11:15 80 11/01/16 11:15 80 16 139/60 (86) 99 11/01/16 11:00 80 17 131/59 (83) 99 11/01/16 11:00 97.9 11/01/16 11:00 80 11/01/16 10:46 80 11/01/16 10:30 80 11/01/16 10:15 82 11/01/16 10:00 80 11/01/16 09:45 80 11/01/16 09:34 80 11/01/16 09:19 82 11/01/16 09:00 84 11/01/16 08:45 80 11/01/16 08:30 80 11/01/16 08:18 96 Nasal Cannula 4.00 11/01/16 08:15 80 11/01/16 08:00 80 11/01/16 08:00 80 11/01/16 07:00 97.3 80 16 130/77 (94) 98 11/01/16 07:00 80 11/01/16 06:00 80 11/01/16 04:00 80 11/01/16 03:00 97.3 83 27 123/69 (87) 97 11/01/16 02:00 79 11/01/16 00:16 97 Nasal Cannula 4.00 11/01/16 00:00 80 10/31/16 23:00 97.5 82 18 99/69 (79) 93 10/31/16 23:00 82 10/31/16 22:32 97.9 84 20 116/52 (73) 97 10/31/16 22:29 10/31/16 21:50 81 16 129/84 (99) 97 Room Air 10/31/16 21:35 94 Nasal Cannula 2.00 10/31/16 21:23 83 18 140/75 (96) 96 Room Air 10/31/16 20:56 82 19 110/69 (83) 99 Room Air 10/31/16 20:45 84 17 127/92 (104) 97 Room Air 10/31/16 20:35 87 18 115/65 (82) 96 Room Air 10/31/16 20:30 86 18 125/73 (90) 97 Room Air 10/31/16 20:22 80 79/62 10/31/16 20:20 81 15 79/62 (68) 95 Room Air 10/31/16 20:00 80 19 76/46 (56) 92 Room Air 10/31/16 19:50 78 19 82/45 (57) 97 Room Air Physical Exam CONSTITUTIONAL/GENERAL: This is an adequately nourished patient, in no apparent distress. TUBES/LINES/DRAINS: SKIN: No jaundice, rashes, or lesions. Skin temperature appropriate. Not diaphoretic. HEAD: Atraumatic. Normocephalic. EYES: Pupils equal and round and reactive. Extraocular motions intact. No scleral icterus. No injection or drainage. Fundi not examined. ENT: Hearing grossly normal. Nose without bleeding or purulent drainage. Oral mucosae without visible erythema, exudates, masses, or lesions. NECK: Trachea midline. Supple, nontender. CARDIOVASCULAR: Regular rate and rhythm without murmurs, gallops, or rubs. No JVD. Peripheral pulses symmetric. RESPIRATORY/CHEST: Symmetric, unlabored respirations. Clear to auscultation. Breath sounds equal bilaterally. No wheezes, rales, or rhonchi. GASTROINTESTINAL: Abdomen soft, + tender to palpation especially in RLQ , mildly to moderately distended. No hepato-splenomegaly, or palpable masses. No guarding. Bowel sounds present. incontinent of liquid brown stool GENITOURINARY: Without palpable bladder distension. Agustin catheter in place. MUSCULOSKELETAL: Extremities without clubbing, cyanosis, or edema. No joint tenderness or effusion noted. No calf tenderness. No mottling or clubbing. LYMPHATICS: No palpable cervical or supraclavicular adenopathy. NEUROLOGICAL:Lethargic, but arousable to voice. Confused. Oriended x 1-2 Motor and sensory grossly within normal limits. Follows commands. Clear speech. Moves all extremities. PSYCHIATRIC: No obvious anxiety/depression. no apparent hallucinations or other psychotic thought process. Laboratory Laboratory Tests Test 10/31/16 19:30 10/31/16 20:00 10/31/16 21:30 10/31/16 22:00 Prothrombin Time 11.8 Prothromb Time International Ratio 1.1 Activated Partial Thromboplast Time 29.5 Lactic Acid Level 2.6 Ammonia 19 Urine Color DARK-YELLOW Urine Turbidity HAZY Urine pH 5.0 Urine Specific [place] 1.025 Urine Protein 30 Urine Glucose (UA) NEG Urine Ketones NEG Urine Occult Blood NEG Urine Nitrite NEG Urine Bilirubin NEG Urine Urobilinogen 2.0 Urine Leukocyte Esterase SMALL Urine RBC 3 Urine WBC 9 Urine Bacteria FEW Urine Mucus FEW Microscopic Urinalysis Comment CULTURE INDICATED Urine Eosinophils NONE SEEN Urine Random Creatinine 69.2 Urine Random Sodium 55 Blood Gas Puncture Site RT BRACHIAL Blood Gas Patient Temperature 98.6 Blood Gas HCO3 12 Blood Gas Base Excess -13.4 Blood Gas Oxygen Saturation 93 Arterial Blood pH 7.29 Arterial Blood Partial Pressure CO2 26 Arterial Blood Partial Pressure O2 89 Arterial Blood Oxygen Content 13.5 Arterial Blood Carboxyhemoglobin 0.3 Arterial Blood Methemoglobin 1.5 Blood Gas Hemoglobin 10.2 Oxygen Delivery Device NASAL CANNULA Blood Gas Liter Flow 2 Nasal Screen MRSA (PCR) MRSA NOT DETECTED Test 11/01/16 04:43 11/01/16 12:33 11/01/16 13:48 11/01/16 15:03 White Blood Count 11.9 Red Blood Count 3.69 Hemoglobin 10.8 Hematocrit 34.2 Mean Corpuscular Volume 92.6 Mean Corpuscular Hemoglobin 29.4 Mean Corpuscular Hemoglobin Concent 31.7 Red Cell Distribution Width 17.7 Platelet Count 218 Mean Platelet Volume 9.1 Neutrophils (%) (Auto) 90.5 Lymphocytes (%) (Auto) 5.3 Monocytes (%) (Auto) 4.0 Eosinophils (%) (Auto) 0.0 Basophils (%) (Auto) 0.2 Neutrophils # (Auto) 10.8 Lymphocytes # (Auto) 0.6 Monocytes # (Auto) 0.5 Eosinophils # (Auto) 0.0 Basophils # (Auto) 0.0 CBC Comment DIFF FINAL Differential Comment Blood Urea Nitrogen 49 Creatinine 2.51 Random Glucose 84 Total Protein 6.1 Albumin 2.2 Calcium Level 7.5 Phosphorus Level 5.7 Magnesium Level 2.8 Alkaline Phosphatase 518 Aspartate Amino Transf (AST/SGOT) 32 Alanine Aminotransferase (ALT/SGPT) 17 Total Bilirubin 0.3 Sodium Level 142 Potassium Level 5.2 5.4 Chloride Level 116 Carbon Dioxide Level 15.4 Anion Gap 11 Estimat Glomerular Filtration Rate 19 Lactic Acid Level 1.2 Urine Random Sodium 70 Urine Random Potassium 48 Urine Random Chloride 69 Urine Opiates Screen NEG Urine Barbiturates Screen NEG Urine Amphetamines Screen NEG Urine Benzodiazepines Screen NEG Urine Cocaine Screen NEG Urine Cannabinoids Screen NEG Blood Gas Puncture Site RT RADIAL Blood Gas Patient Temperature 98.6 Blood Gas HCO3 13 Blood Gas Base Excess -12.2 Blood Gas Oxygen Saturation 94 Arterial Blood pH 7.32 Arterial Blood Partial Pressure CO2 25 Arterial Blood Partial Pressure O2 111 Arterial Blood Oxygen Content 14.2 Arterial Blood Carboxyhemoglobin 0.6 Arterial Blood Methemoglobin 2.0 Blood Gas Hemoglobin 10.6 Oxygen Delivery Device NASAL CANNULA Blood Gas Liter Flow 4 Test 11/01/16 16:40 Blood Urea Nitrogen 45 Creatinine 2.19 Random Glucose 96 Total Protein 6.1 Calcium Level 7.3 Sodium Level 147 Potassium Level 4.6 Chloride Level 123 Carbon Dioxide Level 15.2 Anion Gap 9 Estimat Glomerular Filtration Rate 23 Protein Corrected Calcium 7.8 Thyroxine (T4) 1.8 Thyroid Stimulating Hormone 3rd Gen 9.610 Date/Time Source Procedure Growth Status 10/31/16 19:30 Blood Peripheral Aerobic Blood Culture - Preliminary NO GROWTH IN 1 DAY Resulted 10/31/16 19:30 Blood Peripheral Anaerobic Blood Culture - Preliminary NO GROWTH IN 1 DAY Resulted 10/31/16 18:45 Stool Stool Cryptosporidium Exam - Final NEGATIVE - NO CRYPTOSPORIDIUM ANTIGEN... Complete 10/31/16 18:45 Stool Stool Giardia Antigen (MARISA) - Final NEGATIVE - NO GIARDIA ANTIGEN DETECTE... Complete 10/31/16 20:00 Urine Random Urine Urine Culture - Preliminary NO GROWTH IN 24 HOURS. Resulted Result Diagram: 11/01/16 0443 11/01/16 1640 Imaging Last Impressions Head CT 11/01/16 0000 Signed Impressions: Service Date/Time: Tuesday, November 01, 2016 15:20 - CONCLUSION: Negative for an acute process. Jason Zafar MD FACR Abdomen/Pelvis CT 10/31/16 0000 Signed Impressions: Service Date/Time: Monday, October 31, 2016 20:39 - CONCLUSION: 1. Abnormal bowel gas pattern with areas of wall thickening involving the ascending, transverse and portions of the descending colon. The findings are most consistent with colitis. 2. Bilateral renal calculi left greater than right as well as apparent multiple stones in the distal right ureter with no definite hydronephrosis. 3. Soft tissue mass in the right side of the pelvis agent 3.8 x 2.8 cm in diameter faint areas of calcification. This is nonspecific . 4. Sclerotic foci in the right ilium which is nonspecific. This could represent a large bone island. 5. The study is suboptimal secondary to lack of intravenous and oral contrast. Satinder Joseph MD Assessment and Plan Assessment and Plan Colitis - C.diff negative - CMV P MS change Sepsis UTI, in the settings on non obstructing calculi RA, on prednisone and leflunomide ED - improving cont cefepime for now add flagyl IV awaiting colonscopy Discussed Condition With josé miguel Dejesus, GI team Amada Bui MD Nov 01, 2016 19:55
--- NOTE | 2016-11-01 20:09 | EKG ---
Date Performed: 10/31/2016 Time Performed: 19:55:14 PTAGE: 61 years EKG: Sinus rhythm WITH SHORT HI INTERVAL MARKED LEFT AXIS DEVIATION INCOMPLETE RIGHT BUNDLE BRANCH BLOCK MINIMAL ST DE PRESSION PROLONGED QT INTERVAL ABNORMAL ECG NO PREVIOUS TRACING DOCTOR: Olga Lynch Interpretating Date/Time 11/01/2016 20:05:52
[2016-11-01] MEDS: FAMOTIDINE 20 MG/2 ML VIAL IV PUSH SCH (21:01)
[2016-11-02] VITALS (18 sets, daily range): BP systolic 143–160; BP diastolic 61–81; PULSE 80–109; RESP 15–31; TEMP 98–99.8; O2SAT 96–99
[2016-11-02] MEDS ORDERED: PRED5TAB PO (00:58)
[2016-11-02] MEDS ORDERED: LISI2.5T3 PO (00:58)
[2016-11-02] MEDS ORDERED: HYDR200T3 PO (00:58)
[2016-11-02] MEDS ORDERED: TOPA25TA8 PO (00:58)
[2016-11-02] MEDS ORDERED: LYRI50CA PO (00:58)
[2016-11-02] MEDS ORDERED: HUMI40KI SQ (00:58)
[2016-11-02] MEDS ORDERED: ATOR10TA15 PO (00:58)
[2016-11-02] MEDS ORDERED: LEVO112T2 PO (00:58)
[2016-11-02] MEDS ORDERED: ACYC400T PO (00:58)
[2016-11-02] MEDS ORDERED: [UNRECOGNIZED DRUG - CODE] PO (00:58)
[2016-11-02] MEDS ORDERED: METO25TA3 PO (00:58)
[2016-11-02] MEDS: INSULIN ASPART SUPPLEMENTAL SCALE SQ SCH ×5 (03:00→23:00)
[2016-11-02] MEDS: CHLORHEXIDINE GLUCONATE 2 % 1 PACK (2 CLOTHS) TOP SCH (04:00)
[2016-11-02] MEDS: SODIUM BICARBONATE 8.4% INJ 150 MEQ in DEXTROSE 5% IN WATE 1000ML INJ 1,000 ML IV SCH ×4 (04:31→11:04)
[2016-11-02] MEDS: metroNIDAZOLE 500 MG INJ 100 ML IV SCH ×3 (04:32→21:30)
[2016-11-02] MEDS: HYDROCORTISONE SOD SUCCINATE 100 MG VIAL IV PUSH SCH ×4 (04:32→23:25)
[2016-11-02 05:54] LABS: HEMATOCRIT 31.3 % (35.0-46.0); MEAN CELL VOLUME 93.4 FL (80.0-100.0); MEAN CORPUSCULAR HEMOGLOBIN 29.7 PG (27.0-34.0); MEAN CORPUSCULAR HGB CONC 31.8 % (32.0-36.0); PLATELET COUNT 182 TH/MM3 (150-450); RED BLOOD COUNT 3.35 MIL/MM3 (4.00-5.30); RED CELL DISTRIBUTION WIDTH 17.9 % (11.6-17.2); WHITE BLOOD COUNT 10.7 TH/MM3 (4.0-11.0)
[2016-11-02 05:57] LABS: HEMO FLAGS AUTO DIFF
[2016-11-02 06:31] LABS: CALCIUM-PROTEIN CORRECTED 7.8 MG/DL (8.5-10.1)
[2016-11-02] MEDS: CEFEPIME INJ 1,000 MG in SODIUM CHLORIDE 0.9% INJ 100 ML IV SCH (06:35)
[2016-11-02 07:18] LABS: BANDS 16 % (0-6); NEUTROPHIL # MANUAL DIFF 9.1 TH/MM3 (1.8-7.7); POLYS (SEG NEUTROPHILS) 69 % (16-70); TOXIC VACUOLATION PRESENT (NONE SEEN); WBC DIFF SAMPLE 100
[2016-11-02 07:19] LABS: DOHLE BODIES PRESENT (NONE SEEN); OVALOCYTES 1+ (NORMAL)
[2016-11-02 07:21] LABS: ACANTHOCYTES OCC (NORMAL); SCAN/DIFF FINAL DIFF MANUAL
--- NOTE | 2016-11-02 08:39 | HHI.CCPN ---
Subjective Remarks/Hospital Course 61 yo female with PMH of rheumatoid arthritis for which she is on prednisone and disease modifying therapy (Leflunomide), hypothyroidism, hypertension, hyperlipidemia who presents to [facility] emergency department for 1 day history of severe diarrhea. She began having abdominal cramping the evening of 10/30 at around 11 PM . Her mother states that for about 2 hours she nearly continuously passed watery stools that were initially brown and then became black in color. Not bloody or mucoid. She states she then had a near syncopal event and fell on the floor and her mother couldn't get her off the floor for 2 hours. There was no head trauma. [place] [facility] [place] was able to get home around 3 am but was lethargic with remained near-syncopal so was brought in by [facility]. She has been afebrile. Her blood pressure is 86/56 in the ED. She was given 3 L normal saline bolus and then levophed was started. She was given Zosyn and vancomycin in the ED. Patient denies nausea or vomiting. She generally has very poor appetite for several months. She denies known ill contacts. She and her mother have been eating all of the same food and no one else in her household is sick. She has not eaten any fish or shellfish; no raw meats/milks/cheeses; no international travel; no camping. ED workup reveals CT abdomen and pelvis with thickening of the ascending, transverse, descending colon consistent with colitis. C. difficile is negative. She has acute kidney injury with BUN 58, creatinine 3.88. Potassium is 5.9. Alkaline phosphatase is 663 with normal transaminases. Lipase is negative. Lactic acid is 2.6. Denies cough, sore throat, headache, dysuria. 11/01 Patient is lying in bed in NAD. Afebrile. Renal function is improving with Cr: 2.51 today from 3.88. Afebrile. 11/02 Patient is more awake and alert this morning. CT brain yesterday showed no acute process. For colonoscopy and possible EGD today. Renal function is improving with Cr: 1.85 today from 2.19. On Bicarb drip. Objective Vital Signs Date Time Temp Pulse Resp B/P (MAP) Pulse Ox O2 Delivery O2 Flow Rate FiO2 11/02/16 06:00 101 11/02/16 04:00 99.2 24 150/61 (90) 97 11/01/16 23:57 Nasal Cannula 5.00 Intake and Output 11/02/16 11/02/16 11/03/16 08:00 16:00 00:00 Intake Total 1250 ml Output Total 400 ml Balance 850 ml Result Diagram: 11/02/16 0525 11/02/16 0525 Other Results Laboratory Tests Test 11/01/16 12:33 11/01/16 13:48 11/01/16 15:03 11/01/16 16:40 Potassium Level 5.4 MEQ/L 4.6 MEQ/L Urine Random Sodium 70 MEQ/L Urine Random Potassium 48 MEQ/L Urine Random Chloride 69 MEQ/L Urine Opiates Screen NEG Urine Barbiturates Screen NEG Urine Amphetamines Screen NEG Urine Benzodiazepines Screen NEG Urine Cocaine Screen NEG Urine Cannabinoids Screen NEG Blood Gas Puncture Site RT RADIAL Blood Gas Patient Temperature 98.6 Blood Gas HCO3 13 mmol/L Blood Gas Base Excess -12.2 mmol/L Blood Gas Oxygen Saturation 94 % Arterial Blood pH 7.32 Arterial Blood Partial Pressure CO2 25 mmHg Arterial Blood Partial Pressure O2 111 mmHg Arterial Blood Oxygen Content 14.2 Vol % Arterial Blood Carboxyhemoglobin 0.6 % Arterial Blood Methemoglobin 2.0 % Blood Gas Hemoglobin 10.6 G/DL Oxygen Delivery Device NASAL CANNULA Blood Gas Liter Flow 4 L/M Blood Urea Nitrogen 45 MG/DL Creatinine 2.19 MG/DL Random Glucose 96 MG/DL Total Protein 6.1 GM/DL Calcium Level 7.3 MG/DL Sodium Level 147 MEQ/L Chloride Level 123 MEQ/L Carbon Dioxide Level 15.2 MEQ/L Anion Gap 9 MEQ/L Estimat Glomerular Filtration Rate 23 ML/MIN Protein Corrected Calcium 7.8 MG/DL Thyroxine (T4) 1.8 MCG/DL Thyroid Stimulating Hormone 3rd Gen 9.610 uIU/ML Test 11/02/16 05:25 White Blood Count 10.7 TH/MM3 Red Blood Count 3.35 MIL/MM3 Hemoglobin 10.0 GM/DL Hematocrit 31.3 % Mean Corpuscular Volume 93.4 FL Mean Corpuscular Hemoglobin 29.7 PG Mean Corpuscular Hemoglobin Concent 31.8 % Red Cell Distribution Width 17.9 % Platelet Count 182 TH/MM3 Mean Platelet Volume 9.6 FL CBC Comment AUTO DIFF Differential Total Cells Counted 100 Neutrophils % (Manual) 69 % Band Neutrophils % 16 % Lymphocytes % 7 % Monocytes % 8 % Neutrophils # (Manual) 9.1 TH/MM3 Differential Comment FINAL DIFF MANUAL Toxic Vacuolation PRESENT Dohle Bodies PRESENT Platelet Estimate Platelet Morphology Comment Ovalocytes 1+ Acanthocytes OCC Blood Urea Nitrogen 39 MG/DL Creatinine 1.85 MG/DL Random Glucose 112 MG/DL Total Protein 6.2 GM/DL Calcium Level 7.3 MG/DL Sodium Level 149 MEQ/L Potassium Level 4.0 MEQ/L Chloride Level 120 MEQ/L Carbon Dioxide Level 19.0 MEQ/L Anion Gap 10 MEQ/L Estimat Glomerular Filtration Rate 28 ML/MIN Protein Corrected Calcium 7.8 MG/DL Imaging Last Impressions Head CT 11/01/16 0000 Signed Impressions: Service Date/Time: Tuesday, November 01, 2016 15:20 - CONCLUSION: Negative for an acute process. Jason Zafar MD FACR Abdomen/Pelvis CT 10/31/16 0000 Signed Impressions: Service Date/Time: Monday, October 31, 2016 20:39 - CONCLUSION: 1. Abnormal bowel gas pattern with areas of wall thickening involving the ascending, transverse and portions of the descending colon. The findings are most consistent with colitis. 2. Bilateral renal calculi left greater than right as well as apparent multiple stones in the distal right ureter with no definite hydronephrosis. 3. Soft tissue mass in the right side of the pelvis agent 3.8 x 2.8 cm in diameter faint areas of calcification. This is nonspecific . 4. Sclerotic foci in the right ilium which is nonspecific. This could represent a large bone island. 5. The study is suboptimal secondary to lack of intravenous and oral contrast. Satinder Joseph MD Objective Remarks GENERAL: Lethargic ill-appearing female laying in bed in no resp distress SKIN: Dry, peripherally cool. HEAD: Atraumatic. Normocephalic. EYES: Pupils equal and round. No scleral icterus. ENT: Mucous membranes dry. NECK: Trachea midline. No JVD. CARDIOVASCULAR: Regular rate and rhythm, sinus rhythm on the monitor. No murmurs rubs or gallops. RESPIRATORY: Clear to auscultation bilaterally with no wheezes Rales or rhonchi GASTROINTESTINAL: Abdomen soft, mildly distended without tympany. Mildly tender throughout without rebound or guarding. Bowel sounds are present. : Agustin in place with eugenio urine output. MUSCULOSKELETAL: Extremities without clubbing, cyanosis. There is an ankle brace in place on the right. Hand deformities consistent with rheumatoid arthritis NEUROLOGICAL: Lethargic, Speech is not slurred but she is definitely slow to answer questions. Does answer questions of orientation correctly x4. No obvious cranial nerve deficits. Motor grossly within normal limits, moving all extremities without focal deficit. A/P Problem List: (1) Colitis ICD Code: K52.9 - Noninfective gastroenteritis and colitis, unspecified (2) Immunocompromised state ICD Code: D84.9 - Immunodeficiency, unspecified (3) Hyperkalemia ICD Code: E87.5 - Hyperkalemia Status: Acute (4) Acute renal failure ICD Code: N17.9 - Acute kidney failure, unspecified Status: Acute (5) Diarrhea ICD Code: R19.7 - Diarrhea, unspecified Status: Acute (6) Metabolic acidosis ICD Code: E87.2 - Acidosis Status: Acute (7) Sepsis ICD Code: A41.9 - Sepsis, unspecified organism Status: Acute Assessment and Plan NEURO: Acute toxic metabolic encephalopathy Monitor neuro status avoid sedatives UDS 11/01 is negative 11/01 CT brain: No acute process Morphine 2 mg IV every 3 hours as needed for pain RESP: Tobacco abuse Continue with oxygen keep sat >92% Check CXR CV: Hypertension Lactic acidemia- cleared Received 4 L normal saline bolus since arrival Place on Lopressor 25mg Q12 Monitor HR and BP keep MAP>65mmHg On Hydrocortisone 50mg IV Q6 Continue bicarb drip. GI: Diarrhea Colitis Obesity Keep NPO. GI is following. For possible colonoscopy and EGD today C. difficile negative CT abdomen and pelvis 10/31/16wall thickening of ascending, Transverse, descending colon consistent with colitis. FEN/RENAL: Acute dehydration Acute kidney injury..improving Acute hyperkalemia. Acute metabolic acidemia..improving Multiple nonobstructing left renal calculi Monitor renal function, I/O's, avoid nephrotoxins Renal function is improving Cr: 1.85 today from 2.19 d/c bicarb drip and place on 1/2NS@75ml/hr discussed with renal- Dr. Schroeder No hydronephrosis noted on CT abdomen ID/RHEUM: Severe diarrhea Colitis Immunocompromised state Leukocytosis with bandemia..improving Blood cultures, Urine and Stool cultures...NGTD. C. difficile is negative. Received Zosyn and vancomycin in the ED 10/31. Continue abx ( Cefepime, Flagyl)monitor for signs of infections ( fever, WBC) ID is following MARINA MANAGER: Ovarian mass Has previously been referred to gynecology HEME: Anemia Monitor CBC ENDO: Hypothyroidism Chronic prednisone use with 5 mg by mouth daily On hydrocortisone 50 g IV every 6 hours. Low-dose SSI with bedside glucose before meals at bedtime. Resume Synthroid 100mcg daily. TSH: 9.6, T4: 1.8 PROPH: SCDs for DVT prophylaxis. Pharmacologic DVT prophylaxis will be avoided at this time due to concern for bleeding (black stools) Famotidine for stress ulcer prophylaxis ACCESS: Peripheral IV providing adequate access at this time. Full code Level III Problem Qualifiers (1) Acute renal failure: Qualified Codes: N17.9 - Acute kidney failure, unspecified (2) Diarrhea: Qualified Codes: R19.7 - Diarrhea, unspecified (3) Sepsis: Qualified Codes: A41.9 - Sepsis, unspecified organism Quincy Rivers MD Nov 02, 2016 08:39
[2016-11-02] MEDS: SODIUM CHLORIDE 0.9% FLUSH 10 ML FLUSH IV FLUSH SCH ×2 (08:49→21:30)
[2016-11-02] MEDS: FAMOTIDINE 20 MG/2 ML VIAL IV PUSH SCH ×2 (08:49→21:29)
--- NOTE | 2016-11-02 09:34 | RADRPT ---
EXAM DATE/TIME: 11/02/2016 08:42 [place] COMPARISON: No previous studies available for comparison. INDICATIONS : Short of breath. MEDICAL HISTORY : None. SURGICAL HISTORY : None. ENCOUNTER: Subsequent ACUITY: 2 days PAIN SCORE: 0/10 LOCATION: Bilateral chest FINDINGS: Mild streaky bilateral perihilar parenchymal opacities are noted. Consolidative change and likely sma ll effusion present at the left base. Heart size is within normal limits. CONCLUSION: Bilateral infiltrates Gerardo Ashby MD on November 02, 2016 at 9:32 Board Certified Radiologist. This report was verified electronically.
[2016-11-02] MEDS ORDERED: PROPOFOL 200 MG/20 ML AMP IV PUSH ONE (10:23)
--- NOTE | 2016-11-02 10:31 | HHI.GIFU ---
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 Colon findings consistent with pseudomembranous colitis or ischemic colitis. Biopsy taken and stool collected for C Diff testing. Objective Vitals I&O Vital Signs Date Time Temp Pulse Resp B/P (MAP) Pulse Ox O2 Delivery O2 Flow Rate FiO2 11/02/16 09:00 103 11/02/16 08:00 96 11/02/16 08:00 98.1 96 15 159/81 (107) 98 11/02/16 07:00 100 11/02/16 06:00 101 11/02/16 04:00 99.2 109 24 150/61 (90) 97 11/02/16 04:00 109 11/02/16 02:00 103 11/02/16 00:00 99.8 101 18 155/75 (101) 97 11/02/16 00:00 101 11/01/16 23:57 97 Nasal Cannula 5.00 11/01/16 22:00 100 11/01/16 20:00 97.4 93 21 144/80 (101) 99 11/01/16 20:00 93 11/01/16 19:00 92 11/01/16 18:00 91 11/01/16 17:00 86 11/01/16 17:00 86 11/01/16 17:00 86 23 99 11/01/16 16:00 94 25 96 11/01/16 16:00 94 11/01/16 16:00 94 11/01/16 15:41 85 11/01/16 15:41 85 18 123/77 (92) 99 11/01/16 15:41 85 11/01/16 15:00 84 11/01/16 15:00 84 11/01/16 15:00 98.5 11/01/16 15:00 84 31 125/73 (90) 99 11/01/16 14:45 83 11/01/16 14:30 83 11/01/16 14:18 83 11/01/16 14:00 83 11/01/16 12:53 81 11/01/16 12:30 81 11/01/16 12:16 80 11/01/16 12:00 80 11/01/16 11:45 80 11/01/16 11:30 80 9/4/17 11:15 80 11/01/16 11:15 80 16 139/60 (86) 99 11/01/16 11:00 80 17 131/59 (83) 99 11/01/16 11:00 97.9 11/01/16 11:00 80 11/01/16 10:46 80 11/01/16 10:30 80 I/O 11/01/16 11/01/16 11/01/16 11/02/16 11/02/16 11/02/16 07:00 15:00 23:00 07:00 15:00 23:00 Intake Total 891 ml 1000 ml 1100 ml 1250 ml Output Total 1050 ml 800 ml 400 ml Balance -159 ml 1000 ml 300 ml 850 ml Intake Oral 0 ml IV Total 891 ml 1000 ml 1100 ml 1250 ml Output Urine Total 1050 ml 800 ml 400 ml Stool Total 0 ml # Bowel Movements 2 1 Laboratory Laboratory Tests Test 11/01/16 12:33 11/01/16 13:48 11/01/16 15:03 11/01/16 16:40 Potassium Level 5.4 4.6 Urine Random Sodium 70 Urine Random Potassium 48 Urine Random Chloride 69 Urine Opiates Screen NEG Urine Barbiturates Screen NEG Urine Amphetamines Screen NEG Urine Benzodiazepines Screen NEG Urine Cocaine Screen NEG Urine Cannabinoids Screen NEG Blood Gas Puncture Site RT RADIAL Blood Gas Patient Temperature 98.6 Blood Gas HCO3 13 Blood Gas Base Excess -12.2 Blood Gas Oxygen Saturation 94 Arterial Blood pH 7.32 Arterial Blood Partial Pressure CO2 25 Arterial Blood Partial Pressure O2 111 Arterial Blood Oxygen Content 14.2 Arterial Blood Carboxyhemoglobin 0.6 Arterial Blood Methemoglobin 2.0 Blood Gas Hemoglobin 10.6 Oxygen Delivery Device NASAL CANNULA Blood Gas Liter Flow 4 Blood Urea Nitrogen 45 Creatinine 2.19 Random Glucose 96 Total Protein 6.1 Calcium Level 7.3 Sodium Level 147 Chloride Level 123 Carbon Dioxide Level 15.2 Anion Gap 9 Estimat Glomerular Filtration Rate 23 Protein Corrected Calcium 7.8 Thyroxine (T4) 1.8 Thyroid Stimulating Hormone 3rd Gen 9.610 Test 11/02/16 05:25 White Blood Count 10.7 Red Blood Count 3.35 Hemoglobin 10.0 Hematocrit 31.3 Mean Corpuscular Volume 93.4 Mean Corpuscular Hemoglobin 29.7 Mean Corpuscular Hemoglobin Concent 31.8 Red Cell Distribution Width 17.9 Platelet Count 182 Mean Platelet Volume 9.6 CBC Comment AUTO DIFF Differential Total Cells Counted 100 Neutrophils % (Manual) 69 Band Neutrophils % 16 Lymphocytes % 7 Monocytes % 8 Neutrophils # (Manual) 9.1 Differential Comment FINAL DIFF MANUAL Toxic Vacuolation PRESENT Dohle Bodies PRESENT Platelet Estimate Platelet Morphology Comment Ovalocytes 1+ Acanthocytes OCC Blood Urea Nitrogen 39 Creatinine 1.85 Random Glucose 112 Total Protein 6.2 Calcium Level 7.3 Sodium Level 149 Potassium Level 4.0 Chloride Level 120 Carbon Dioxide Level 19.0 Anion Gap 10 Estimat Glomerular Filtration Rate 28 Protein Corrected Calcium 7.8 Date/Time Source Procedure Growth Status 10/31/16 19:30 Blood Peripheral Aerobic Blood Culture - Preliminary NO GROWTH IN 1 DAY Resulted 10/31/16 19:30 Blood Peripheral Anaerobic Blood Culture - Preliminary NO GROWTH IN 1 DAY Resulted 10/31/16 18:45 Stool Stool Cryptosporidium Exam - Final NEGATIVE - NO CRYPTOSPORIDIUM ANTIGEN... Complete 10/31/16 18:45 Stool Stool Giardia Antigen (MARISA) - Final NEGATIVE - NO GIARDIA ANTIGEN DETECTE... Complete 10/31/16 20:00 Urine Random Urine Urine Culture - Final NO GROWTH IN 48 HOURS. Complete Physical Exam HEENT: Pupils round and reactive to light; normocephalic; atraumatic; no jaundice. Throat is clear. NECK: Neck is supple, no JVD, no lymphadenopathy. CHEST: Chest is clear to auscultation and percussion. CARDIAC: Regular rate and rhythm with no murmur gallop or rubs. ABDOMEN: Soft, nondistended,mildly tender, no hepatosplenomegaly; bowel sounds are present in all four quadrants. EXTREMITIES: No clubbing, cyanosis, or edema. SKIN: Normal; no rash; no jaundice. FARMHAND: No focal deficits; alert and oriented times three. Assessment and Plan Plan ASSESSMENT: Diarrhea, CT Abdomen/Pelvis 10/31/16--1. Abnormal bowel gas pattern with areas of wall thickening involving the ascending, transverse and portions of the descending colon. The findings are most consistent with colitis. 2. Bilateral renal calculi left greater than right as well as apparent multiple stones in the distal right ureter with no definite hydronephrosis. 3. Soft tissue mass in the right side of the pelvis agent 3.8 x 2.8 cm in diameter faint areas of calcification. This is nonspecific 4. Sclerotic foci in the right ilium which is nonspecific. This could represent a large bone island. 5. The study is suboptimal secondary to lack of intravenous and oral contrast. C diff negative. Stool studies pending. EGD showed duodenal AVM, ablated Colonoscopy to splenic flexure showed exudative colitis with sparing of rectum. Ischemic colitis vs pseudomembranous colitis Biopsy taken and stool collected for retest on C Diff PLAN: - Await stool studies - Add Vancomycin 250mg po Q6H - Monitor labs - Supportive care - Further recommendations to follow based on results of above. Patient seen and examined by Dr. Kelly and myself and this note is written on his behalf. Yuri Kelly MD Nov 02, 2016 10:31
[2016-11-02] MEDS ORDERED: DO NOT ADM ANY ANTICOAGULANT DRUGS PRN (10:34)
[2016-11-02 12:26] LABS: C. DIFF EPI 027 PRESUMPTIVE NEGATIVE (NEGATIVE)
[2016-11-02] MEDS: VANCOMYCIN 500 MG VIAL (FOR ORAL USE ONLY) PO SCH ×3 (12:30→21:31)
[2016-11-02] MEDS: LEVOTHYROXINE SODIUM 100 MCG TAB PO SCH (13:00)
[2016-11-02] MEDS ORDERED: SODIUM CHLOR 0.45% 1000 ML INJ 1,000 ML IV SCH (13:00)
--- NOTE | 2016-11-02 13:04 | HHI.NPPN ---
Subjective History of Present Illness 61 Year old female with ARF Dehydration hypothyroidism Review of Systems General Constitutional: Fatigue Objective Data Data 11/02/16 11/03/16 19:00 07:00 Intake Total 600 ml Balance 600 ml Other 600 ml Vital Signs Date Time Temp Pulse Resp B/P (MAP) Pulse Ox O2 Delivery O2 Flow Rate FiO2 11/02/16 12:00 98.2 100 31 97 11/02/16 12:00 100 11/02/16 09:00 103 11/02/16 08:00 96 11/02/16 08:00 98.1 96 15 159/81 (107) 98 11/02/16 07:00 100 11/02/16 06:00 101 11/02/16 04:00 99.2 109 24 150/61 (90) 97 11/02/16 04:00 109 11/02/16 02:00 103 11/02/16 00:00 99.8 101 18 155/75 (101) 97 11/02/16 00:00 101 11/01/16 23:57 97 Nasal Cannula 5.00 11/01/16 22:00 100 11/01/16 20:00 97.4 93 21 144/80 (101) 99 11/01/16 20:00 93 11/01/16 19:00 92 11/01/16 18:00 91 11/01/16 17:00 86 11/01/16 17:00 86 11/01/16 17:00 86 23 99 11/01/16 16:00 94 25 96 11/01/16 16:00 94 11/01/16 16:00 94 11/01/16 15:41 85 11/01/16 15:41 85 18 123/77 (92) 99 11/01/16 15:41 85 11/01/16 15:00 84 11/01/16 15:00 84 11/01/16 15:00 98.5 11/01/16 15:00 84 31 125/73 (90) 99 11/01/16 14:45 83 11/01/16 14:30 83 11/01/16 14:18 83 11/01/16 14:00 83 -: 11/02/16 0525 11/02/16 0525 Physical Exam General Appearance: Well Developed Neck Neck Exam: Neck Supple Pulmonary Resp Exam: Clear Bilaterally, Breath Sounds Equal Cardiology CV Exam: Regular, Normal Sinus Rhythm Gastrointestinal/Abdomen GI Exam: Soft, Non-Tender, Bowel Sounds Present Extremeties Extremities Exam: No Edema Neurologic Neuro Exam: Alert Assessment/Plan Problem List: (1) Acute renal failure ICD Codes: N17.9 - Acute kidney failure, unspecified Status: Acute Plan: Patient appears to have dehydration, Na 149 creatinine improved T4 low , High TSH on Synthroid change IVF 1/2 NS d/w Dr. Rivers Monitor BMP Avoid nephrotoxic (2) Hyperkalemia ICD Codes: E87.5 - Hyperkalemia Status: Acute Plan: Likely due to metabolic acidosis continue with bicarbonate drip (3) Diarrhea ICD Codes: R19.7 - Diarrhea, unspecified Status: Acute Plan: Is watery in nature and awaiting cultures (4) Metabolic acidosis ICD Codes: E87.2 - Acidosis Status: Acute Plan: Due to GI losses non-anion gap (5) Hypotension ICD Codes: I95.9 - Hypotension, unspecified Status: Acute Plan: hypothyroid started on Synthroid Problem Qualifiers (1) Acute renal failure: Qualified Codes: N17.9 - Acute kidney failure, unspecified (2) Diarrhea: Qualified Codes: R19.7 - Diarrhea, unspecified (3) Hypotension: Qualified Codes: I95.9 - Hypotension, unspecified Jorge Schroeder MD Nov 02, 2016 13:04
[2016-11-02] MEDS ORDERED: oxyCODONE/ACETAMINOPHEN 5 MG/325 MG TAB PO ONE (13:45)
--- NOTE | 2016-11-02 15:58 | HHI.IDPN ---
Subjective Subjective Remarks pt is doing better MS normal sp coloniscopy -results noted PMC : C.diff vs ischemic bowel no fever Antibiotics efepime flagyl Allergies: Coded Allergies: esomeprazole (Verified Allergy, Mild, Hives, Rash, 11/02/16) Objective . Vital Signs Date Time Temp Pulse Resp B/P (MAP) Pulse Ox O2 Delivery O2 Flow Rate FiO2 11/02/16 13:00 103 11/02/16 12:31 96 Nasal Cannula 3.00 11/02/16 12:00 98.2 100 31 97 11/02/16 12:00 100 11/02/16 11:15 97.8 98 17 148/75 (99) 97 11/02/16 11:00 92 16 147/68 (94) 98 11/02/16 10:45 99 15 140/72 (94) 95 11/02/16 10:38 97.7 98 14 124/75 (91) 95 11/02/16 09:00 103 11/02/16 08:00 96 11/02/16 08:00 98.1 96 15 159/81 (107) 98 11/02/16 07:00 100 11/02/16 06:00 101 11/02/16 04:00 99.2 109 24 150/61 (90) 97 11/02/16 04:00 109 11/02/16 02:00 103 11/02/16 00:00 99.8 101 18 155/75 (101) 97 11/02/16 00:00 101 11/01/16 23:57 97 Nasal Cannula 5.00 11/01/16 22:00 100 11/01/16 20:00 97.4 93 21 144/80 (101) 99 11/01/16 20:00 93 11/01/16 19:00 92 11/01/16 18:00 91 11/01/16 17:00 86 11/01/16 17:00 86 11/01/16 17:00 86 23 99 11/01/16 16:00 94 25 96 11/01/16 16:00 94 11/01/16 16:00 94 11/02/16 11/02/16 11/03/16 15:00 23:00 07:00 Intake Total 1625 ml Balance 1625 ml IV Total 1025 ml Other 600 ml . Laboratory Tests Test 10/31/16 18:30 11/01/16 04:43 11/02/16 05:25 White Blood Count 14.2 TH/MM3 11.9 TH/MM3 10.7 TH/MM3 Red Blood Count 3.73 MIL/MM3 3.69 MIL/MM3 3.35 MIL/MM3 Hemoglobin 10.8 GM/DL 10.8 GM/DL 10.0 GM/DL Hematocrit 34.0 % 34.2 % 31.3 % Mean Corpuscular Volume 91.2 FL 92.6 FL 93.4 FL Mean Corpuscular Hemoglobin 28.9 PG 29.4 PG 29.7 PG Mean Corpuscular Hemoglobin Concent 31.7 % 31.7 % 31.8 % Red Cell Distribution Width 17.8 % 17.7 % 17.9 % Platelet Count 217 TH/MM3 218 TH/MM3 182 TH/MM3 Mean Platelet Volume 9.7 FL 9.1 FL 9.6 FL Neutrophils (%) (Auto) 89.8 % 90.5 % Lymphocytes (%) (Auto) 5.0 % 5.3 % Monocytes (%) (Auto) 5.0 % 4.0 % Eosinophils (%) (Auto) 0.1 % 0.0 % Basophils (%) (Auto) 0.1 % 0.2 % Neutrophils # (Auto) 12.7 TH/MM3 10.8 TH/MM3 Lymphocytes # (Auto) 0.7 TH/MM3 0.6 TH/MM3 Monocytes # (Auto) 0.7 TH/MM3 0.5 TH/MM3 Eosinophils # (Auto) 0.0 TH/MM3 0.0 TH/MM3 Basophils # (Auto) 0.0 TH/MM3 0.0 TH/MM3 CBC Comment AUTO DIFF DIFF FINAL AUTO DIFF Differential Total Cells Counted 100 100 Neutrophils % (Manual) 55 % 69 % Band Neutrophils % 38 % 16 % Lymphocytes % 1 % 7 % Monocytes % 5 % 8 % Neutrophils # (Manual) 13.3 TH/MM3 9.1 TH/MM3 Metamyelocytes 1 % Differential Comment FINAL DIFF MANUAL FINAL DIFF MANUAL Platelet Estimate NORMAL Platelet Morphology Comment NORMAL Red Cell Morphology Comment NORMAL Toxic Vacuolation PRESENT Dohle Bodies PRESENT Ovalocytes 1+ Acanthocytes OCC Laboratory Tests Test 10/31/16 18:30 10/31/16 19:30 11/01/16 04:43 11/01/16 12:33 Blood Urea Nitrogen 58 MG/DL 49 MG/DL Creatinine 3.88 MG/DL 2.51 MG/DL Random Glucose 72 MG/DL 84 MG/DL Total Protein 6.9 GM/DL 6.1 GM/DL Albumin 2.6 GM/DL 2.2 GM/DL Calcium Level 8.7 MG/DL 7.5 MG/DL Alkaline Phosphatase 663 U/L 518 U/L Aspartate Amino Transf (AST/SGOT) 37 U/L 32 U/L Alanine Aminotransferase (ALT/SGPT) 20 U/L 17 U/L Total Bilirubin 0.5 MG/DL 0.3 MG/DL Sodium Level 140 MEQ/L 142 MEQ/L Potassium Level 5.9 MEQ/L 5.2 MEQ/L 5.4 MEQ/L Chloride Level 113 MEQ/L 116 MEQ/L Carbon Dioxide Level 12.9 MEQ/L 15.4 MEQ/L Anion Gap 14 MEQ/L 11 MEQ/L Estimat Glomerular Filtration Rate 12 ML/MIN 19 ML/MIN Magnesium Level 3.4 MG/DL 2.8 MG/DL Total Creatine Kinase 64 U/L Lipase 185 U/L Lactic Acid Level 2.6 mmol/L 1.2 mmol/L Ammonia 19 MCMOL/L Phosphorus Level 5.7 MG/DL Test 11/01/16 16:40 11/02/16 05:25 Blood Urea Nitrogen 45 MG/DL 39 MG/DL Creatinine 2.19 MG/DL 1.85 MG/DL Random Glucose 96 MG/DL 112 MG/DL Total Protein 6.1 GM/DL 6.2 GM/DL Calcium Level 7.3 MG/DL 7.3 MG/DL Sodium Level 147 MEQ/L 149 MEQ/L Potassium Level 4.6 MEQ/L 4.0 MEQ/L Chloride Level 123 MEQ/L 120 MEQ/L Carbon Dioxide Level 15.2 MEQ/L 19.0 MEQ/L Anion Gap 9 MEQ/L 10 MEQ/L Estimat Glomerular Filtration Rate 23 ML/MIN 28 ML/MIN Protein Corrected Calcium 7.8 MG/DL 7.8 MG/DL Thyroxine (T4) 1.8 MCG/DL Thyroid Stimulating Hormone 3rd Gen 9.610 uIU/ML Microbiology Date/Time Source Procedure Growth Status 10/31/16 19:30 Blood Peripheral Aerobic Blood Culture - Preliminary NO GROWTH IN 2 DAYS Resulted 10/31/16 19:30 Blood Peripheral Anaerobic Blood Culture - Preliminary NO GROWTH IN 2 DAYS Resulted 10/31/16 19:20 Blood Peripheral Aerobic Blood Culture - Preliminary NO GROWTH IN 2 DAYS Resulted 10/31/16 19:20 Blood Peripheral Anaerobic Blood Culture - Preliminary NO GROWTH IN 2 DAYS Resulted 10/31/16 18:45 Stool Stool Cryptosporidium Exam - Final NEGATIVE - NO CRYPTOSPORIDIUM ANTIGEN... Complete 10/31/16 18:45 Stool Stool Giardia Antigen (MARISA) - Final NEGATIVE - NO GIARDIA ANTIGEN DETECTE... Complete 10/31/16 18:45 Stool Stool - Final NO ENTERIC PATHOGENS DETECTED BY PCR... Complete 10/31/16 20:00 Urine Random Urine Urine Culture - Final NO GROWTH IN 48 HOURS. Complete Imaging Last Impressions Chest X-Ray 11/02/16 0000 Signed Impressions: Service Date/Time: Wednesday, November 02, 2016 08:42 - CONCLUSION: Bilateral infiltrates Gerardo Ashby MD Head CT 11/01/16 0000 Signed Impressions: Service Date/Time: Tuesday, November 01, 2016 15:20 - CONCLUSION: Negative for an acute process. Jason Zafar MD FACR Abdomen/Pelvis CT 10/31/16 0000 Signed Impressions: Service Date/Time: Monday, October 31, 2016 20:39 - CONCLUSION: 1. Abnormal bowel gas pattern with areas of wall thickening involving the ascending, transverse and portions of the descending colon. The findings are most consistent with colitis. 2. Bilateral renal calculi left greater than right as well as apparent multiple stones in the distal right ureter with no definite hydronephrosis. 3. Soft tissue mass in the right side of the pelvis agent 3.8 x 2.8 cm in diameter faint areas of calcification. This is nonspecific . 4. Sclerotic foci in the right ilium which is nonspecific. This could represent a large bone island. 5. The study is suboptimal secondary to lack of intravenous and oral contrast. Satinder Joseph MD Physical Exam CONSTITUTIONAL/GENERAL: This is an adequately nourished patient, in no apparent distress. TUBES/LINES/DRAINS: SKIN: No jaundice, rashes, or lesions. Skin temperature appropriate. Not diaphoretic. ENT: Hearing grossly normal. Nose without bleeding or purulent drainage. Oral mucosae without visible erythema, exudates, masses, or lesions. CARDIOVASCULAR: Regular rate and rhythm without murmurs, gallops, or rubs. No JVD. Peripheral pulses symmetric. RESPIRATORY/CHEST: Symmetric, unlabored respirations. Clear to auscultation. Breath sounds equal bilaterally. No wheezes, rales, or rhonchi. GASTROINTESTINAL: Abdomen soft, + tender to palpation especially in RLQ , mildly to moderately distended. No hepato-splenomegaly, or palpable masses. No guarding. Bowel sounds present. GENITOURINARY: Without palpable bladder distension. MUSCULOSKELETAL: Extremities without clubbing, cyanosis, or edema. . No mottling or clubbing. NEUROLOGICAL:Awake. alert Oriended x 3 Motor and sensory grossly within normal limits. Follows commands. Clear speech. Moves all extremities. PSYCHIATRIC: No obvious anxiety/depression. no apparent hallucinations or other psychotic thought process. Assessment & Plan Remarks Colitis - C.diff vs ischemic - not cw CMV on colonoscopy visualisation - CMV P MS change: resolved Sepsis - imprvoed No e/o UTI on urine clx non obstructing calculi RA, on prednisone and leflunomide ED - improving dc cefepime for now cont flagyl IV add vanco po awaiting bx Amada Cosme MD Nov 02, 2016 15:58
[2016-11-02] MEDS: METOPROLOL TARTRATE 25 MG TAB PO SCH ×2 (16:41→21:30)
[2016-11-02] MEDS: SODIUM CHLOR 0.45% 1000 ML INJ 1,000 ML IV SCH (16:43)
[2016-11-02] MEDS: POLYETHYLENE GLYCOL 17 GM PKG PO SCH ×2 (21:00→21:30)
[2016-11-03] VITALS (19 sets, daily range): BP systolic 120–156; BP diastolic 65–76; PULSE 51–75; RESP 16–22; TEMP 98–98.5; O2SAT 93–96
[2016-11-03] MEDS: INSULIN ASPART SUPPLEMENTAL SCALE SQ SCH ×6 (03:00→23:00)
[2016-11-03] MEDS: CHLORHEXIDINE GLUCONATE 2 % 1 PACK (2 CLOTHS) TOP SCH (04:00)
[2016-11-03] MEDS: HYDROCORTISONE SOD SUCCINATE 100 MG VIAL IV PUSH SCH ×2 (04:09→11:20)
[2016-11-03] MEDS: metroNIDAZOLE 500 MG INJ 100 ML IV SCH ×3 (04:10→20:14)
[2016-11-03] MEDS: SODIUM CHLOR 0.45% 1000 ML INJ 1,000 ML IV SCH (04:10)
[2016-11-03] MEDS: LEVOTHYROXINE SODIUM 100 MCG TAB PO SCH (05:11)
--- NOTE | 2016-11-03 05:14 | RADRPT ---
EXAM DATE/TIME: 11/03/2016 03:19 [place] COMPARISON: CHEST SINGLE AP, November 02, 2016, 8:42. INDICATIONS : Short of breath MEDICAL HISTORY : None. SURGICAL HISTORY : None. ENCOUNTER: Subsequent ACUITY: 2 days PAIN SCORE: 0/10 LOCATION: Bilateral chest FINDINGS: Redemonstration of radiopaque opacities in the right mid to lower lung zones. Stable airspace disease in the left lower lung zone. Cardiomediastinal contours are stable. Remainder of the exam is unchang ed. CONCLUSION: 1. Stable left lower lung zone airspace disease. 2. Stable right mid and lower lung zone atelectasis/scarring. 3. No significant interval change. Rehan León MD on November 03, 2016 at 5:12 Board Certified Radiologist. This report was verified electronically.
[2016-11-03 06:22] LABS: AUTOMATED NEUTROPHIL # 13.9 TH/MM3 (1.8-7.7); BASOPHIL % 0.1 % (0.0-2.0); HEMATOCRIT 26.8 % (35.0-46.0); HEMO FLAGS DIFF FINAL; LYMPH % 4.8 % (9.0-44.0); LYMPHOCYTE # 0.7 TH/MM3 (1.0-4.8); MEAN CORPUSCULAR HEMOGLOBIN 28.5 PG (27.0-34.0); MEAN CORPUSCULAR HGB CONC 32.1 % (32.0-36.0); MONO % 3.8 % (0.0-8.0); NEUT % 91.3 % (16.0-70.0); PLATELET COUNT 159 TH/MM3 (150-450); RED BLOOD COUNT 3.01 MIL/MM3 (4.00-5.30); RED CELL DISTRIBUTION WIDTH 17.7 % (11.6-17.2); WHITE BLOOD COUNT 15.2 TH/MM3 (4.0-11.0)
[2016-11-03 07:00] LABS: BICARBONATE 22.1 MEQ/L (21.0-32.0)
[2016-11-03 07:37] LABS: CALCIUM-PROTEIN CORRECTED 7.8 MG/DL (8.5-10.1)
[2016-11-03] MEDS ORDERED: POTASSIUM CHLOR 20 MEQ PREMIX 100 ML ONE (09:24)
[2016-11-03] MEDS: VANCOMYCIN 500 MG VIAL (FOR ORAL USE ONLY) PO SCH ×4 (09:38→20:21)
[2016-11-03] MEDS: METOPROLOL TARTRATE 25 MG TAB PO SCH ×2 (09:41→20:19)
[2016-11-03] MEDS: FAMOTIDINE 20 MG/2 ML VIAL IV PUSH SCH ×2 (09:41→20:18)
[2016-11-03] MEDS: POLYETHYLENE GLYCOL 17 GM PKG PO SCH ×2 (09:41→20:21)
[2016-11-03] MEDS: SODIUM CHLORIDE 0.9% FLUSH 10 ML FLUSH IV FLUSH SCH ×2 (09:41→20:17)
--- NOTE | 2016-11-03 12:30 | HHI.NPPN ---
Subjective History of Present Illness 61 Year old female with ARF Dehydration hypothyroidism Review of Systems General Constitutional: Fatigue Objective Data Data 11/03/16 11/04/16 19:00 07:00 Intake Total 100 ml Balance 100 ml IV Total 100 ml Vital Signs Date Time Temp Pulse Resp B/P (MAP) Pulse Ox O2 Delivery O2 Flow Rate FiO2 11/03/16 12:00 66 11/03/16 11:00 71 11/03/16 10:00 65 11/03/16 09:00 68 11/03/16 08:22 95 11/03/16 08:00 98.3 64 16 94 11/03/16 08:00 64 11/03/16 07:00 67 11/03/16 06:00 70 11/03/16 04:00 71 11/03/16 04:00 98.5 71 18 135/65 (88) 93 11/03/16 02:00 75 11/03/16 00:00 98.0 75 20 120/75 (90) 94 11/02/16 20:39 99 Nasal Cannula 3.00 11/02/16 20:00 98.0 80 21 143/81 (101) 96 11/02/16 18:00 94 11/02/16 17:00 94 11/02/16 16:00 95 11/02/16 16:00 98.1 95 19 160/72 (101) 11/02/16 15:00 107 11/02/16 14:00 100 11/02/16 13:00 103 11/02/16 12:31 96 Nasal Cannula 3.00 -: 11/03/16 0516 11/03/16 0516 Physical Exam General Appearance: Well Developed Neck Neck Exam: Neck Supple Pulmonary Resp Exam: Clear Bilaterally, Breath Sounds Equal Cardiology CV Exam: Regular, Normal Sinus Rhythm Gastrointestinal/Abdomen GI Exam: Soft, Non-Tender, Bowel Sounds Present Extremeties Extremities Exam: No Edema Neurologic Neuro Exam: Alert Assessment/Plan Problem List: (1) Acute renal failure ICD Codes: N17.9 - Acute kidney failure, unspecified Status: Acute Plan: Patient appears to have dehydration, Cr declined hb dropped post hydration I, stop IVF, K was replaced. on to resume Prednisone/Plaquenil Monitor BMP Avoid nephrotoxic (2) Hyperkalemia ICD Codes: E87.5 - Hyperkalemia Status: Acute Plan: Likely due to metabolic acidosis continue with bicarbonate drip (3) Diarrhea ICD Codes: R19.7 - Diarrhea, unspecified Status: Acute Plan: Is watery in nature and awaiting cultures (4) Metabolic acidosis ICD Codes: E87.2 - Acidosis Status: Acute Plan: Due to GI losses non-anion gap (5) Hypotension ICD Codes: I95.9 - Hypotension, unspecified Status: Acute Plan: hypothyroid started on Synthroid Problem Qualifiers (1) Acute renal failure: Qualified Codes: N17.9 - Acute kidney failure, unspecified (2) Diarrhea: Qualified Codes: R19.7 - Diarrhea, unspecified (3) Hypotension: Qualified Codes: I95.9 - Hypotension, unspecified Jorge Schroeder MD Nov 03, 2016 12:30
[2016-11-03] MEDS: HYDROXYCHLOROQUINE SULFATE 200 MG TAB PO SCH (14:00)
[2016-11-03 14:57] LABS: HEMATOCRIT 28.1 % (35.0-46.0); REVIEW FLAG FINAL
--- NOTE | 2016-11-03 16:02 | HHI.CCPN ---
Subjective Remarks/Hospital Course 61 yo female with PMH of rheumatoid arthritis for which she is on prednisone and disease modifying therapy (Leflunomide), hypothyroidism, hypertension, hyperlipidemia who presents to [facility] emergency department for 1 day history of severe diarrhea. She began having abdominal cramping the evening of 10/30 at around 11 PM . Her mother states that for about 2 hours she nearly continuously passed watery stools that were initially brown and then became black in color. Not bloody or mucoid. She states she then had a near syncopal event and fell on the floor and her mother couldn't get her off the floor for 2 hours. There was no head trauma. She was at the [facility] [place] and was able to get home around 3 am but was lethargic with remained near-syncopal so was brought in by [facility]. She has been afebrile. Her blood pressure is 86/56 in the ED. She was given 3 L normal saline bolus and then levophed was started. She was given Zosyn and vancomycin in the ED. Patient denies nausea or vomiting. She generally has very poor appetite for several months. She denies known ill contacts. She and her mother have been eating all of the same food and no one else in her household is sick. She has not eaten any fish or shellfish; no raw meats/milks/cheeses; no international travel; no camping. ED workup reveals CT abdomen and pelvis with thickening of the ascending, transverse, descending colon consistent with colitis. C. difficile is negative. She has acute kidney injury with BUN 58, creatinine 3.88. Potassium is 5.9. Alkaline phosphatase is 663 with normal transaminases. Lipase is negative. Lactic acid is 2.6. Denies cough, sore throat, headache, dysuria. 11/01 Patient is lying in bed in NAD. Afebrile. Renal function is improving with Cr: 2.51 today from 3.88. Afebrile. 11/02 Patient is more awake and alert this morning. CT brain yesterday showed no acute process. For colonoscopy and possible EGD today. Renal function is improving with Cr: 1.85 today from 2.19. On Bicarb drip. 11/03 Afebrile .IV fluids discontinued per nephrology. Diet advance from clear liquid to soft diet. Normal mentation. Noted 2 g/dl drop in hemoglobin this am .Repeat hemoglobin stable. Objective Vital Signs Date Time Temp Pulse Resp B/P (MAP) Pulse Ox O2 Delivery O2 Flow Rate FiO2 11/03/16 12:00 98.2 66 18 156/76 (102) 93 11/02/16 20:39 Nasal Cannula 3.00 Intake and Output 11/03/16 11/03/16 11/04/16 08:00 16:00 00:00 Intake Total 440 ml 1100 ml Output Total 450 ml Balance -10 ml 1100 ml Result Diagram: 11/03/16 1409 11/03/16 0516 Other Results Microbiology Date/Time Source Procedure Growth Status 10/31/16 18:45 Stool Stool Cryptosporidium Exam - Final NEGATIVE - NO CRYPTOSPORIDIUM ANTIGEN... Complete 10/31/16 18:45 Stool Stool Giardia Antigen (MARISA) - Final NEGATIVE - NO GIARDIA ANTIGEN DETECTE... Complete 10/31/16 18:45 Stool Stool - Final NO ENTERIC PATHOGENS DETECTED BY PCR... Complete 10/31/16 20:00 Urine Random Urine Urine Culture - Final NO GROWTH IN 48 HOURS. Complete Imaging Last Impressions Head CT 11/01/16 0000 Signed Impressions: Service Date/Time: Tuesday, November 01, 2016 15:20 - CONCLUSION: Negative for an acute process. Jason Zafar MD FACR Abdomen/Pelvis CT 10/31/16 0000 Signed Impressions: Service Date/Time: Monday, October 31, 2016 20:39 - CONCLUSION: 1. Abnormal bowel gas pattern with areas of wall thickening involving the ascending, transverse and portions of the descending colon. The findings are most consistent with colitis. 2. Bilateral renal calculi left greater than right as well as apparent multiple stones in the distal right ureter with no definite hydronephrosis. 3. Soft tissue mass in the right side of the pelvis agent 3.8 x 2.8 cm in diameter faint areas of calcification. This is nonspecific . 4. Sclerotic foci in the right ilium which is nonspecific. This could represent a large bone island. 5. The study is suboptimal secondary to lack of intravenous and oral contrast. Satinder Joseph MD Objective Remarks GENERAL: Well-developed well-nourished female laying in bed in no apparent distress SKIN: Dry, peripherally cool. HEAD: Atraumatic. Normocephalic. EYES: Pupils equal and round. No scleral icterus. ENT: Mucous membranes dry. NECK: Trachea midline. No JVD. CARDIOVASCULAR: Regular rate and rhythm, sinus rhythm on the monitor. No murmurs rubs or gallops. RESPIRATORY: Clear to auscultation bilaterally with no wheezes Rales or rhonchi GASTROINTESTINAL: Abdomen soft, mildly distended without tympany. Mildly tender throughout without rebound or guarding. Bowel sounds are present. : Agustin in place with eugenio urine output. MUSCULOSKELETAL: Extremities without clubbing, cyanosis. There is an ankle brace in place on the right. Hand deformities consistent with rheumatoid arthritis NEUROLOGICAL: Asleep but easily arousable. No obvious cranial nerve deficits. His extremities 4. No focal deficits A/P Problem List: (1) Colitis ICD Code: K52.9 - Noninfective gastroenteritis and colitis, unspecified (2) Immunocompromised state ICD Code: D84.9 - Immunodeficiency, unspecified (3) Hyperkalemia ICD Code: E87.5 - Hyperkalemia Status: Acute (4) Acute renal failure ICD Code: N17.9 - Acute kidney failure, unspecified Status: Acute (5) Diarrhea ICD Code: R19.7 - Diarrhea, unspecified Status: Acute (6) Metabolic acidosis ICD Code: E87.2 - Acidosis Status: Acute (7) Sepsis ICD Code: A41.9 - Sepsis, unspecified organism Status: Acute Assessment and Plan NEURO: Acute toxic metabolic encephalopathy Monitor neuro status avoid sedatives UDS 11/01 is negative 11/01 CT brain: No acute process Discontinue morphine IV Provide PO narcotics for pain scale 710 RESP: Tobacco abuse Continue with oxygen keep sat >92% Monitor CXR CV: Hypertension Lactic acidemia- cleared Received 4 L normal saline bolus since arrival Place on Lopressor 25mg Q12 Monitor HR and BP keep MAP>65mmHg On Hydrocortisone 50mg IV Q6 11/03 nephrology signed off. IV fluids discontinued GI: Diarrhea Colitis Obesity Clear liquid diet advance to soft diet today GI is following. 11/02 S/P colonoscopy and EGD today C. difficile negative CT abdomen and pelvis 10/31/16wall thickening of ascending, Transverse, descending colon consistent with colitis. FEN/RENAL: Acute dehydration Acute kidney injury..improving Acute hyperkalemia. Acute metabolic acidemia..improving Multiple nonobstructing left renal calculi Monitor renal function, I/O's, avoid nephrotoxins Renal function is improving Cr: 1.85 today from 2.19 D/C IVF's per Dr. Schroeder-nephrology signed off No hydronephrosis noted on CT abdomen ID/RHEUM: Severe diarrhea Colitis Immunocompromised state Leukocytosis with bandemia..improving Blood cultures, Urine and Stool cultures...NGTD. C. difficile is negative. Received Zosyn and vancomycin in the ED 10/31. Continue abx ( Cefepime, Flagyl)monitor for signs of infections ( fever, WBC) ID is following PINION SORTER: Ovarian mass Has previously been referred to gynecology HEME: Anemia Monitor CBC ENDO: Hypothyroidism Chronic prednisone use with 5 mg by mouth daily On hydrocortisone 50 g IV every 6 hours. Low-dose SSI with bedside glucose before meals at bedtime. Resume Synthroid 100mcg daily. TSH: 9.6, T4: 1.8 PROPH: SCDs for DVT prophylaxis. Pharmacologic DVT prophylaxis will be avoided at this time due to concern for bleeding (black stools) Famotidine for stress ulcer prophylaxis ACCESS: Peripheral IV providing adequate access at this time. Full code Level 2 Planned transfer to [facility] in a.. Physician Sharon Mondragon Problem Qualifiers (1) Acute renal failure: Qualified Codes: N17.9 - Acute kidney failure, unspecified (2) Diarrhea: Qualified Codes: R19.7 - Diarrhea, unspecified (3) Sepsis: Qualified Codes: A41.9 - Sepsis, unspecified organism Sharon Mondragon MD Nov 03, 2016 16:02
--- NOTE | 2016-11-03 16:36 | HHI.GIFU ---
Subjective Remarks Asking for food. Still with liquid stool. Objective Vitals I&O Vital Signs Date Time Temp Pulse Resp B/P (MAP) Pulse Ox O2 Delivery O2 Flow Rate FiO2 11/03/16 16:00 66 11/03/16 16:00 98.3 66 22 143/76 (98) 95 11/03/16 15:00 64 11/03/16 14:00 70 11/03/16 13:00 51 11/03/16 12:00 98.2 66 18 156/76 (102) 93 11/03/16 12:00 66 11/03/16 11:00 71 11/03/16 10:00 65 11/03/16 09:00 68 11/03/16 08:22 95 11/03/16 08:00 98.3 64 16 94 11/03/16 08:00 64 11/03/16 07:00 67 11/03/16 06:00 70 11/03/16 04:00 71 11/03/16 04:00 98.5 71 18 135/65 (88) 93 11/03/16 02:00 75 11/03/16 00:00 98.0 75 20 120/75 (90) 94 11/02/16 20:39 99 Nasal Cannula 3.00 11/02/16 20:00 98.0 80 21 143/81 (101) 96 11/02/16 18:00 94 11/02/16 17:00 94 I/O 11/02/16 11/02/16 11/02/16 11/03/16 11/03/16 11/03/16 07:00 15:00 23:00 07:00 15:00 23:00 Intake Total 1250 ml 1625 ml 1500 ml 440 ml 1100 ml Output Total 400 ml 450 ml 450 ml Balance 850 ml 1625 ml 1050 ml -10 ml 1100 ml Intake Oral 500 ml 240 ml IV Total 1250 ml 1025 ml 1000 ml 200 ml 1100 ml Other 600 ml Output Urine Total 400 ml 450 ml 450 ml # Bowel Movements 1 2 1 Laboratory Laboratory Tests Test 11/03/16 05:16 11/03/16 14:09 White Blood Count 15.2 Red Blood Count 3.01 Hemoglobin 8.6 8.9 Hematocrit 26.8 28.1 Mean Corpuscular Volume 89.0 Mean Corpuscular Hemoglobin 28.5 Mean Corpuscular Hemoglobin Concent 32.1 Red Cell Distribution Width 17.7 Platelet Count 159 Mean Platelet Volume 9.8 Neutrophils (%) (Auto) 91.3 Lymphocytes (%) (Auto) 4.8 Monocytes (%) (Auto) 3.8 Eosinophils (%) (Auto) 0.0 Basophils (%) (Auto) 0.1 Neutrophils # (Auto) 13.9 Lymphocytes # (Auto) 0.7 Monocytes # (Auto) 0.6 Eosinophils # (Auto) 0.0 Basophils # (Auto) 0.0 CBC Comment DIFF FINAL Differential Comment Blood Urea Nitrogen 31 Creatinine 1.15 Random Glucose 89 Total Protein 5.3 Calcium Level 6.9 Sodium Level 145 Potassium Level 3.0 Chloride Level 114 Carbon Dioxide Level 22.1 Anion Gap 9 Estimat Glomerular Filtration Rate 48 Protein Corrected Calcium 7.8 Date/Time Source Procedure Growth Status 10/31/16 19:30 Blood Peripheral Aerobic Blood Culture - Preliminary NO GROWTH IN 3 DAYS Resulted 10/31/16 19:30 Blood Peripheral Anaerobic Blood Culture - Preliminary NO GROWTH IN 3 DAYS Resulted 10/31/16 18:45 Stool Stool Cryptosporidium Exam - Final NEGATIVE - NO CRYPTOSPORIDIUM ANTIGEN... Complete 10/31/16 18:45 Stool Stool Giardia Antigen (MARISA) - Final NEGATIVE - NO GIARDIA ANTIGEN DETECTE... Complete 10/31/16 20:00 Urine Random Urine Urine Culture - Final NO GROWTH IN 48 HOURS. Complete Physical Exam HEENT: Pupils round and reactive to light; normocephalic; atraumatic; no jaundice. Throat is clear. NECK: Neck is supple, no JVD, no lymphadenopathy. CHEST: Chest is clear to auscultation and percussion. CARDIAC: Regular rate and rhythm with no murmur gallop or rubs. ABDOMEN: Soft, nondistended,mildly tender, no hepatosplenomegaly; bowel sounds are present in all four quadrants. EXTREMITIES: No clubbing, cyanosis, or edema. SKIN: Normal; no rash; no jaundice. LEAD SOFTWARE TESTER: No focal deficits; alert and oriented times three. Assessment and Plan Plan ASSESSMENT: Diarrhea, CT Abdomen/Pelvis 10/31/16--1. Abnormal bowel gas pattern with areas of wall thickening involving the ascending, transverse and portions of the descending colon. The findings are most consistent with colitis. 2. Bilateral renal calculi left greater than right as well as apparent multiple stones in the distal right ureter with no definite hydronephrosis. 3. Soft tissue mass in the right side of the pelvis agent 3.8 x 2.8 cm in diameter faint areas of calcification. This is nonspecific 4. Sclerotic foci in the right ilium which is nonspecific. This could represent a large bone island. 5. The study is suboptimal secondary to lack of intravenous and oral contrast. C diff negative. Stool studies neg EGD showed duodenal AVM, ablated Colonoscopy to splenic flexure showed exudative colitis with sparing of rectum. Ischemic colitis vs pseudomembranous colitis Biopsy taken and stool collected for retest on C Diff c diff neg PLAN: - GALE - Monitor labs - Supportive care - Further recommendations to follow based on results of above. Patient seen and examined by Dr. Kelly and myself and this note is written on his behalf. Aretha Carrillo Nov 03, 2016 16:36
[2016-11-03] MEDS: ATORVASTATIN 10 MG TAB PO SCH (20:19)
[2016-11-04] VITALS (14 sets, daily range): BP systolic 128–142; BP diastolic 65–76; PULSE 52–69; RESP 17–18; TEMP 98–98.2; O2SAT 94–98
[2016-11-04] MEDS: INSULIN ASPART SUPPLEMENTAL SCALE SQ SCH ×5 (03:00→22:10)
[2016-11-04] MEDS: CHLORHEXIDINE GLUCONATE 2 % 1 PACK (2 CLOTHS) TOP SCH (04:00)
[2016-11-04] MEDS: metroNIDAZOLE 500 MG INJ 100 ML IV SCH ×3 (05:12→22:08)
[2016-11-04] MEDS: LEVOTHYROXINE SODIUM 100 MCG TAB PO SCH (05:12)
[2016-11-04 06:03] LABS: AUTOMATED NEUTROPHIL # 10.8 TH/MM3 (1.8-7.7); BASOPHIL % 0.1 % (0.0-2.0); EOSINOPHIL % 0.2 % (0.0-4.0); HEMATOCRIT 28.2 % (35.0-46.0); LYMPH % 15.2 % (9.0-44.0); LYMPHOCYTE # 2.1 TH/MM3 (1.0-4.8); MEAN CELL VOLUME 90.6 FL (80.0-100.0); MONO % 5.3 % (0.0-8.0); NEUT % 79.2 % (16.0-70.0); PLATELET COUNT 156 TH/MM3 (150-450); RED BLOOD COUNT 3.11 MIL/MM3 (4.00-5.30); RED CELL DISTRIBUTION WIDTH 17.1 % (11.6-17.2); WHITE BLOOD COUNT 13.7 TH/MM3 (4.0-11.0)
[2016-11-04 06:24] LABS: HEMO FLAGS AUTO DIFF
[2016-11-04 07:13] LABS: BICARBONATE 23.6 MEQ/L (21.0-32.0); MAGNESIUM 2.3 MG/DL (1.5-2.5)
[2016-11-04 07:38] LABS: POTASSIUM 2.6 MEQ/L (3.5-5.1)
[2016-11-04 07:52] LABS: CALCIUM-PROTEIN CORRECTED 7.7 MG/DL (8.5-10.1)
[2016-11-04] MEDS: METOPROLOL TARTRATE 25 MG TAB PO SCH ×2 (08:33→22:09)
[2016-11-04] MEDS: HYDROXYCHLOROQUINE SULFATE 200 MG TAB PO SCH (08:33)
[2016-11-04] MEDS: predniSONE 5 MG TAB PO SCH (08:33)
[2016-11-04] MEDS: FAMOTIDINE 20 MG/2 ML VIAL IV PUSH SCH ×2 (08:33→22:08)
[2016-11-04] MEDS: SODIUM CHLORIDE 0.9% FLUSH 10 ML FLUSH IV FLUSH SCH ×2 (08:33→22:08)
[2016-11-04] MEDS: POLYETHYLENE GLYCOL 17 GM PKG PO SCH ×2 (08:34→21:00)
[2016-11-04] MEDS: VANCOMYCIN 500 MG VIAL (FOR ORAL USE ONLY) PO SCH ×4 (08:34→22:10)
[2016-11-04 08:46] LABS: OVALOCYTES 1+ (NORMAL); PLATELET ESTIMATE SMEAR LOW (NORMAL); PLATELET MORPHOLOGY NORMAL (NORMAL); SCAN/DIFF AUTO DIFF CONFIRMED
--- NOTE | 2016-11-04 09:24 | HHI.PR ---
Subjective Remarks Follow-up for abdominal pain Patient feels better, still with mild abdominal pain. Still having diarrhea for a/loose stools. Mildly nauseated but no vomiting. Afebrile. Objective Vitals Vital Signs Date Time Temp Pulse Resp B/P (MAP) Pulse Ox O2 Delivery O2 Flow Rate FiO2 11/04/16 08:00 98.0 69 18 131/69 (89) 96 11/04/16 08:00 52 11/04/16 06:00 62 11/04/16 04:00 98.0 53 18 138/67 (90) 94 11/04/16 04:00 53 11/04/16 02:00 57 11/04/16 00:00 98.2 58 17 136/76 (96) 95 11/04/16 00:00 58 11/03/16 22:00 61 11/03/16 21:21 16 11/03/16 20:00 69 11/03/16 20:00 98.0 69 18 131/69 (89) 96 11/03/16 18:00 62 11/03/16 17:00 55 11/03/16 16:00 66 11/03/16 16:00 98.3 66 22 143/76 (98) 95 11/03/16 15:00 64 11/03/16 14:00 70 11/03/16 13:00 51 11/03/16 12:00 98.2 66 18 156/76 (102) 93 11/03/16 12:00 66 11/03/16 11:00 71 11/03/16 10:00 65 I/O 11/03/16 11/03/16 11/03/16 11/04/16 11/04/16 11/04/16 07:00 15:00 23:00 07:00 15:00 23:00 Intake Total 440 ml 1100 ml 850 ml 340 ml Output Total 450 ml 400 ml 400 ml Balance -10 ml 1100 ml 450 ml -60 ml Intake Oral 240 ml 750 ml 240 ml IV Total 200 ml 1100 ml 100 ml 100 ml Output Urine Total 450 ml 400 ml 400 ml # Bowel Movements 1 2 1 Result Diagram: 11/04/16 0509 11/04/16 0509 Objective Remarks Not in distress, well-nourished, looks stated age PERRL, Normal rate and regular rhythm, no murmurs gallops or rubs appreciated. Clear to auscultation and symmetric bilaterally, normal respiratory effort. Normal bowel sounds, soft, mild abdominal tenderness, no guarding Extremities without clubbing, cyanosis, or edema. No rash of generalized distribution. Skin is warm and dry. AAO x3, no cranial nerve deficits, moves all 4 extremities, no focal neurologic deficits Normal mood, appropriate affect A/P Problem List: (1) Acute renal failure ICD Code: N17.9 - Acute kidney failure, unspecified Status: Acute (2) Diarrhea ICD Code: R19.7 - Diarrhea, unspecified Status: Acute (3) Sepsis ICD Code: A41.9 - Sepsis, unspecified organism Status: Acute (4) GI bleed ICD Code: K92.2 - Gastrointestinal hemorrhage, unspecified Status: Acute (5) Colitis ICD Code: K52.9 - Noninfective gastroenteritis and colitis, unspecified Status: Acute (6) Immunocompromised state ICD Code: D84.9 - Immunodeficiency, unspecified Status: Chronic Assessment and Plan This is a 61-year-old female who presented with abdominal pain, diarrhea and acute renal failure. Sepsis secondary to Colitis from Severe diarrhea with Immunocompromised state - Blood cultures, Urine and Stool cultures all NGTD including C diff assay, continue abx ( Cefepime, Flagyl)monitor for signs of infections ( fever, WBC) ID is following, continue steroids, taper to every [address] scan of the abdomen showed thickening of the ascending, transverse and descending colon. Continue diet, status post colonoscopy and EGD, EGD showed AVM status post intervention, showed colitis, ischemic versus pseudomembranous periods C. difficile negative so far. Patient is on vancomycin prophylactically for C. difficile. Acute toxic metabolic encephalopathy - Monitor neuro status avoid sedatives , UDS 11/01 is negative, 11/01 CT brain: No acute process, minimize narcotics Tobacco abuse - Continue with oxygen keep sat >92%, CXR with stable airspace disease, atelectasis/scarring. Hypertension - cont lopressor, s/p NS resuscitation Acute kidney injury - improving, s/p IVF, CT abdomen with Multiple nonobstructing left renal calculi, no hydronephrosis, Nephrology signed off. Ovarian mass - Has previously been referred to gynecology Hypothyroidism-continue Synthroid per home dose Hypocalcemia-replaced Hypokalemia-replaced, check magnesium. PROPH: SCDs for DVT prophylaxis. Pharmacologic DVT prophylaxis will be avoided at this time due to concern for bleeding (black stools) Famotidine for stress ulcer prophylaxis Full code Problem Qualifiers (1) Acute renal failure: Qualified Codes: N17.9 - Acute kidney failure, unspecified (2) Diarrhea: Qualified Codes: R19.7 - Diarrhea, unspecified (3) Sepsis: Qualified Codes: A41.9 - Sepsis, unspecified organism (4) GI bleed: Qualified Codes: K92.2 - Gastrointestinal hemorrhage, unspecified Mihir Samaniego MD Nov 04, 2016 09:24
[2016-11-04] MEDS: POTASSIUM CHLOR 20 MEQ PREMIX 100 ML IV SCH ×2 (10:58→13:52)
[2016-11-04] MEDS ORDERED: CALCIUM GLUCONATE 10% 1 GM/10 ML VIAL IV PUSH ONE (11:00)
[2016-11-04] MEDS ORDERED: POTASSIUM CHLORIDE 25 MEQ EFFERVESCENT TAB PO ONE (11:00)
[2016-11-04] MEDS ORDERED: CALCIUM GLUCONATE INJ 1 GM in SODIUM CHLORIDE 0.9% INJ 100 ML IV ONE (12:00)
--- NOTE | 2016-11-04 14:21 | HHI.NPPN ---
Subjective History of Present Illness 61 Year old female with ARF Dehydration hypothyroidism Review of Systems General Constitutional: Fatigue Objective Data Data 11/04/16 11/05/16 18:59 06:59 Intake Total 100 ml Balance 100 ml IV Total 100 ml Vital Signs Date Time Temp Pulse Resp B/P (MAP) Pulse Ox O2 Delivery O2 Flow Rate FiO2 11/04/16 14:00 52 11/04/16 12:00 98.2 60 18 134/67 (89) 97 11/04/16 12:00 52 11/04/16 10:00 52 11/04/16 08:00 98.0 69 18 131/69 (89) 96 11/04/16 08:00 52 11/04/16 06:00 62 11/04/16 04:00 98.0 53 18 138/67 (90) 94 11/04/16 04:00 53 11/04/16 02:00 57 11/04/16 00:00 98.2 58 17 136/76 (96) 95 11/04/16 00:00 58 11/03/16 22:00 61 11/03/16 21:21 16 11/03/16 20:00 69 11/03/16 20:00 98.0 69 18 131/69 (89) 96 11/03/16 18:00 62 11/03/16 17:00 55 11/03/16 16:00 66 11/03/16 16:00 98.3 66 22 143/76 (98) 95 11/03/16 15:00 64 -: 11/04/16 0509 11/04/16 0509 Physical Exam General Appearance: Well Developed Neck Neck Exam: Neck Supple Pulmonary Resp Exam: Clear Bilaterally, Breath Sounds Equal Cardiology CV Exam: Regular, Normal Sinus Rhythm Gastrointestinal/Abdomen GI Exam: Soft, Non-Tender, Bowel Sounds Present Extremeties Extremities Exam: No Edema Neurologic Neuro Exam: Alert Assessment/Plan Problem List: (1) Acute renal failure ICD Codes: N17.9 - Acute kidney failure, unspecified Status: Acute Plan: Patient appears to have dehydration, Cr declined I will sign off, stop IVF, K was replaced. Phosphorus low I have replaced it with K-Phos on to resume Prednisone/Plaquenil Monitor BMP Avoid nephrotoxic (2) Hyperkalemia ICD Codes: E87.5 - Hyperkalemia Status: Acute Plan: Likely due to metabolic acidosis continue with bicarbonate drip (3) Diarrhea ICD Codes: R19.7 - Diarrhea, unspecified Status: Acute Plan: Is watery in nature and awaiting cultures (4) Metabolic acidosis ICD Codes: E87.2 - Acidosis Status: Acute Plan: Due to GI losses non-anion gap (5) Hypotension ICD Codes: I95.9 - Hypotension, unspecified Status: Acute Plan: hypothyroid started on Synthroid Problem Qualifiers (1) Acute renal failure: Qualified Codes: N17.9 - Acute kidney failure, unspecified (2) Diarrhea: Qualified Codes: R19.7 - Diarrhea, unspecified (3) Hypotension: Qualified Codes: I95.9 - Hypotension, unspecified Jorge Schroeder MD Nov 04, 2016 14:21
--- NOTE | 2016-11-04 15:03 | HHI.GIFU ---
Subjective Remarks Pt in bed. Not thrilled with food here but is tolerating diet. (Aretha Carrillo) Objective Vitals I&O Vital Signs Date Time Temp Pulse Resp B/P (MAP) Pulse Ox O2 Delivery O2 Flow Rate FiO2 11/04/16 14:00 52 11/04/16 12:00 98.2 60 18 134/67 (89) 97 11/04/16 12:00 52 11/04/16 10:00 52 11/04/16 08:00 98.0 69 18 131/69 (89) 96 11/04/16 08:00 52 11/04/16 06:00 62 11/04/16 04:00 98.0 53 18 138/67 (90) 94 11/04/16 04:00 53 11/04/16 02:00 57 11/04/16 00:00 98.2 58 17 136/76 (96) 95 11/04/16 00:00 58 11/03/16 22:00 61 11/03/16 21:21 16 11/03/16 20:00 69 11/03/16 20:00 98.0 69 18 131/69 (89) 96 11/03/16 18:00 62 11/03/16 17:00 55 11/03/16 16:00 66 11/03/16 16:00 98.3 66 22 143/76 (98) 95 I/O 11/03/16 11/03/16 11/03/16 11/04/16 11/04/16 11/04/16 06:59 14:59 22:59 06:59 14:59 22:59 Intake Total 440 ml 1100 ml 850 ml 340 ml 100 ml Output Total 450 ml 400 ml 400 ml Balance -10 ml 1100 ml 450 ml -60 ml 100 ml Intake Oral 240 ml 750 ml 240 ml IV Total 200 ml 1100 ml 100 ml 100 ml 100 ml Output Urine Total 450 ml 400 ml 400 ml # Bowel Movements 1 2 1 Laboratory Laboratory Tests Test 11/03/16 17:42 11/04/16 05:09 Potassium Level 3.0 2.6 White Blood Count 13.7 Red Blood Count 3.11 Hemoglobin 9.0 Hematocrit 28.2 Mean Corpuscular Volume 90.6 Mean Corpuscular Hemoglobin 29.0 Mean Corpuscular Hemoglobin Concent 32.0 Red Cell Distribution Width 17.1 Platelet Count 156 Mean Platelet Volume 9.6 Neutrophils (%) (Auto) 79.2 Lymphocytes (%) (Auto) 15.2 Monocytes (%) (Auto) 5.3 Eosinophils (%) (Auto) 0.2 Basophils (%) (Auto) 0.1 Neutrophils # (Auto) 10.8 Lymphocytes # (Auto) 2.1 Monocytes # (Auto) 0.7 Eosinophils # (Auto) 0.0 Basophils # (Auto) 0.0 CBC Comment AUTO DIFF Differential Comment AUTO DIFF CONFIRMED Platelet Estimate LOW Platelet Morphology Comment NORMAL Ovalocytes 1+ Blood Urea Nitrogen 29 Creatinine 1.10 Random Glucose 69 Total Protein 5.4 Calcium Level 6.8 Phosphorus Level 0.8 Magnesium Level 2.3 Sodium Level 145 Chloride Level 113 Carbon Dioxide Level 23.6 Anion Gap 8 Estimat Glomerular Filtration Rate 50 Protein Corrected Calcium 7.7 Date/Time Source Procedure Growth Status 10/31/16 19:30 Blood Peripheral Aerobic Blood Culture - Preliminary NO GROWTH IN 4 DAYS Resulted 10/31/16 19:30 Blood Peripheral Anaerobic Blood Culture - Preliminary NO GROWTH IN 4 DAYS Resulted 10/31/16 18:45 Stool Stool Cryptosporidium Exam - Final NEGATIVE - NO CRYPTOSPORIDIUM ANTIGEN... Complete 10/31/16 18:45 Stool Stool Giardia Antigen (MARISA) - Final NEGATIVE - NO GIARDIA ANTIGEN DETECTE... Complete 10/31/16 20:00 Urine Random Urine Urine Culture - Final NO GROWTH IN 48 HOURS. Complete Imaging Last Impressions Chest X-Ray 11/03/16 0600 Signed Impressions: Service Date/Time: Thursday, November 03, 2016 03:19 - CONCLUSION: 1. Stable left lower lung zone airspace disease. 2. Stable right mid and lower lung zone atelectasis/scarring. 3. No significant interval change. Rehan León MD Head CT 11/01/16 0000 Signed Impressions: Service Date/Time: Tuesday, November 01, 2016 15:20 - CONCLUSION: Negative for an acute process. Jason Zafar MD FACR Abdomen/Pelvis CT 10/31/16 0000 Signed Impressions: Service Date/Time: Monday, October 31, 2016 20:39 - CONCLUSION: 1. Abnormal bowel gas pattern with areas of wall thickening involving the ascending, transverse and portions of the descending colon. The findings are most consistent with colitis. 2. Bilateral renal calculi left greater than right as well as apparent multiple stones in the distal right ureter with no definite hydronephrosis. 3. Soft tissue mass in the right side of the pelvis agent 3.8 x 2.8 cm in diameter faint areas of calcification. This is nonspecific . 4. Sclerotic foci in the right ilium which is nonspecific. This could represent a large bone island. 5. The study is suboptimal secondary to lack of intravenous and oral contrast. Satinder Joseph MD Physical Exam HEENT: PERRL; normocephalic; atraumatic; no jaundice. CHEST: CTA CARDIAC: RRR ABDOMEN: Soft, nondistended, nontender, no hepatosplenomegaly; bowel sounds are present in all four quadrants. EXTREMITIES: No clubbing, cyanosis, or edema. SKIN: Normal; no rash; no jaundice. WELDING MANAGER: No focal deficits; alert and oriented times three. (Aretha Carrillo) Assessment and Plan Plan ASSESSMENT: Diarrhea, CT Abdomen/Pelvis 10/31/16--1. Abnormal bowel gas pattern with areas of wall thickening involving the ascending, transverse and portions of the descending colon. The findings are most consistent with colitis. 2. Bilateral renal calculi left greater than right as well as apparent multiple stones in the distal right ureter with no definite hydronephrosis. 3. Soft tissue mass in the right side of the pelvis agent 3.8 x 2.8 cm in diameter faint areas of calcification. This is nonspecific 4. Sclerotic foci in the right ilium which is nonspecific. This could represent a large bone island. 5. The study is suboptimal secondary to lack of intravenous and oral contrast. C diff negative. Stool studies neg EGD showed duodenal AVM, ablated Colonoscopy to splenic flexure showed exudative colitis with sparing of rectum. Ischemic colitis vs pseudomembranous colitis Biopsy taken and stool collected for retest on C Diff c diff neg path - acutely ulcerated tissue with attached acutely inflamed necrotic debris PLAN: - GALE - Monitor labs - Supportive care - f/u as outpatient - colonoscopy in one month - GI will sign off. Please reconsult if needed Patient seen and examined by Dr. Fowler and myself and this note is written on his behalf. (Aretha Carrillo) Physician Comments Patient was seen and examined, agree with the above note, we'll plan on colonoscopy as an outpatient, will sign off at this time since the patient is stable. (Beltran Fowler MD) Aretha Carrillo Nov 04, 2016 15:03 Beltran Fowler MD Nov 04, 2016 19:37
[2016-11-04] MEDS ORDERED: POTASSIUM PHOSPHATE INJ 30 MMOL in SODIUM CHLOR 0.9% 250 ML INJ 250 ML IV ONE (16:00)
[2016-11-04] MEDS: ATORVASTATIN 10 MG TAB PO SCH (22:09)
[2016-11-05 00:55] VITALS: BP 162/88; PULSE 57; RESP 20; TEMP 97.2; O2SAT 100
[2016-11-05] MEDS: INSULIN ASPART SUPPLEMENTAL SCALE SQ SCH ×3 (03:00→11:00)
[2016-11-05] MEDS: metroNIDAZOLE 500 MG INJ 100 ML IV SCH (03:10)
[2016-11-05] MEDS: CHLORHEXIDINE GLUCONATE 2 % 1 PACK (2 CLOTHS) TOP SCH (03:12)
[2016-11-05 05:06] VITALS: BP 129/62; PULSE 67; RESP 16; TEMP 97; O2SAT 96
[2016-11-05] MEDS: LEVOTHYROXINE SODIUM 100 MCG TAB PO SCH (06:03)
[2016-11-05 08:04] VITALS: BP 123/58; PULSE 50; RESP 18; TEMP 97.5; O2SAT 96
[2016-11-05] MEDS: VANCOMYCIN 500 MG VIAL (FOR ORAL USE ONLY) PO SCH (09:00)
[2016-11-05] MEDS: POLYETHYLENE GLYCOL 17 GM PKG PO SCH (09:00)
[2016-11-05] MEDS: METOPROLOL TARTRATE 25 MG TAB PO SCH (09:00)
[2016-11-05] MEDS: SODIUM CHLORIDE 0.9% FLUSH 10 ML FLUSH IV FLUSH SCH (09:00)
[2016-11-05 09:21] LABS: AUTOMATED NEUTROPHIL # 5.5 TH/MM3 (1.8-7.7); BASOPHIL % 0.3 % (0.0-2.0); EOSINOPHIL % 0.4 % (0.0-4.0); HEMATOCRIT 30.3 % (35.0-46.0); LYMPH % 27.2 % (9.0-44.0); LYMPHOCYTE # 2.4 TH/MM3 (1.0-4.8); MEAN CELL VOLUME 89.4 FL (80.0-100.0); MEAN CORPUSCULAR HEMOGLOBIN 28.5 PG (27.0-34.0); MEAN CORPUSCULAR HGB CONC 31.9 % (32.0-36.0); MONO % 9.8 % (0.0-8.0); NEUT % 62.3 % (16.0-70.0); PLATELET COUNT 172 TH/MM3 (150-450); RED BLOOD COUNT 3.39 MIL/MM3 (4.00-5.30); RED CELL DISTRIBUTION WIDTH 17.4 % (11.6-17.2); WHITE BLOOD COUNT 8.9 TH/MM3 (4.0-11.0)
[2016-11-05] MEDS ORDERED: FAMOTIDINE 20 MG TAB PO SCH (09:30)
[2016-11-05 09:33] LABS: HEMO FLAGS AUTO DIFF
[2016-11-05 09:50] LABS: BICARBONATE 20.8 MEQ/L (21.0-32.0); POTASSIUM 3.4 MEQ/L (3.5-5.1)
[2016-11-05] MEDS: HYDROXYCHLOROQUINE SULFATE 200 MG TAB PO SCH (10:37)
[2016-11-05] MEDS: predniSONE 5 MG TAB PO SCH (10:38)
[2016-11-05 11:02] LABS: OVALOCYTES 1+ (NORMAL); PLATELET ESTIMATE SMEAR NORMAL (NORMAL); PLATELET MORPHOLOGY ENLARGED (NORMAL); SCAN/DIFF AUTO DIFF CONFIRMED
--- NOTE | 2016-11-05 11:04 | HHI.PR ---
Addendum to Inpatient Note Additional Information C.diff negative vss stable pt is afebrile path results noted, both path and 2 negative C.diff tests more cw with ? ischemic colitis golden lynnette flagyl and po vancomycin fu with Amada Plunkett MD Nov 05, 2016 11:04
[2016-11-05 12:07] VITALS: BP 139/73; PULSE 53; RESP 18; TEMP 97.3; O2SAT 98
--- NOTE | 2016-11-05 12:43 | HHI.DCPOC ---
Discharge Care Plan Diagnosis: (1) Colitis (2) Immunocompromised state (3) Hyperkalemia (4) Acute renal failure (5) Diarrhea (6) Sepsis (7) Metabolic acidosis (8) Hypotension (9) GI bleed Goals to Promote Your Health * To prevent worsening of your condition and complications * To maintain your health at the optimal level Directions to Meet Your Goals Take your medications as prescribed Follow your dietary instruction Follow activity as directed Keep your appointments as scheduled Take your immunizations and boosters as scheduled If your symptoms worsen call your PCP, if no PCP go to Urgent Care Center or Emergency Room Smoking is Dangerous to Your Health. Avoid second hand smoke Call the 24-hour hour crisis hotline for domestic abuse at Adair Schmid MD Nov 05, 2016 12:43
[2016-11-05] MEDS ORDERED: K-PHTAB PO (12:47)
--- NOTE | 2016-11-05 12:52 | HHI.DS ---
Discharge Summary Admission Date Oct 31, 2016 at 20:56 Discharge Date: Nov 05, 2016 Admitting Diagnosis sepsis' ARF; metabolic acidosis; hyperkalemia; colits (1) Acute renal failure ICD Code: N17.9 - Acute kidney failure, unspecified Status: Acute (2) Diarrhea ICD Code: R19.7 - Diarrhea, unspecified Status: Acute (3) Sepsis ICD Code: A41.9 - Sepsis, unspecified organism Status: Acute (4) GI bleed ICD Code: K92.2 - Gastrointestinal hemorrhage, unspecified Status: Acute (5) Colitis ICD Code: K52.9 - Noninfective gastroenteritis and colitis, unspecified Status: Acute (6) Immunocompromised state ICD Code: D84.9 - Immunodeficiency, unspecified Status: Chronic Procedures 11/02/16 EGD with bipolar cautery ablation of AVMs and duodenum, colonoscopy with biopsy Brief History - From Admission History obtained through discussion with patient, patient's mother, ED physician. Patient is slightly lethargic and somewhat limited in the medical information that she is able to provide. 61 yo female with PMH of rheumatoid arthritis for which she is on prednisone and disease modifying therapy (Leflunomide), hypothyroidism, hypertension, hyperlipidemia who presents to [facility] emergency department for 1 day history of severe diarrhea. She began having abdominal cramping the evening of 10/30 at around 11 PM . Her mother states that for about 2 hours she nearly continuously passed watery stools that were initially brown and then became black in color. Not bloody or mucoid. She states she then had a near syncopal event and fell on the floor and her mother couldn't get her off the floor for 2 hours. There was no head trauma. She was at the [place] when this occurred and was able to get home around 3 am but was lethargic with remained near-syncopal so was brought in by [facility]. She has been afebrile. Her blood pressure is 86/56 in the ED. She was given 3 L normal saline bolus and then levophed was started. She was given Zosyn and vancomycin in the ED. Patient denies nausea or vomiting. She generally has very poor appetite for several months. She denies known ill contacts. She and her mother have been eating all of the same food and no one else in her household is sick. She has not eaten any fish or shellfish; no raw meats/milks/cheeses; no international travel; no camping. ED workup reveals CT abdomen and pelvis with thickening of the ascending, transverse, descending colon consistent with colitis. C. difficile is negative. She has acute kidney injury with BUN 58, creatinine 3.88. Potassium is 5.9. Alkaline phosphatase is 663 with normal transaminases. Lipase is negative. Lactic acid is 2.6. Denies cough, sore throat, headache, dysuria. CBC/BMP: 11/05/16 0742 11/05/16 0742 Significant Findings Laboratory Tests Test 11/03/16 05:16 11/03/16 14:09 11/03/16 17:42 11/04/16 05:09 White Blood Count 15.2 TH/MM3 (4.0-11.0) 13.7 TH/MM3 (4.0-11.0) Red Blood Count 3.01 MIL/MM3 (4.00-5.30) 3.11 MIL/MM3 (4.00-5.30) Hemoglobin 8.6 GM/DL (11.6-15.3) 8.9 GM/DL (11.6-15.3) 9.0 GM/DL (11.6-15.3) Hematocrit 26.8 % (35.0-46.0) 28.1 % (35.0-46.0) 28.2 % (35.0-46.0) Red Cell Distribution Width 17.7 % (11.6-17.2) Neutrophils (%) (Auto) 91.3 % (16.0-70.0) 79.2 % (16.0-70.0) Lymphocytes (%) (Auto) 4.8 % (9.0-44.0) Neutrophils # (Auto) 13.9 TH/MM3 (1.8-7.7) 10.8 TH/MM3 (1.8-7.7) Lymphocytes # (Auto) 0.7 TH/MM3 (1.0-4.8) Blood Urea Nitrogen 31 MG/DL (7-18) 29 MG/DL (7-18) Creatinine 1.15 MG/DL (0.50-1.00) 1.10 MG/DL (0.50-1.00) Total Protein 5.3 GM/DL (6.4-8.2) 5.4 GM/DL (6.4-8.2) Calcium Level 6.9 MG/DL (8.5-10.1) 6.8 MG/DL (8.5-10.1) Potassium Level 3.0 MEQ/L (3.5-5.1) 3.0 MEQ/L (3.5-5.1) 2.6 MEQ/L (3.5-5.1) Chloride Level 114 MEQ/L (98-107) 113 MEQ/L (98-107) Estimat Glomerular Filtration Rate 48 ML/MIN (>89) 50 ML/MIN (>89) Protein Corrected Calcium 7.8 MG/DL (8.5-10.1) 7.7 MG/DL (8.5-10.1) Platelet Estimate LOW (NORMAL) Ovalocytes 1+ (NORMAL) Random Glucose 69 MG/DL (74-106) Phosphorus Level 0.8 MG/DL (2.5-4.9) Test 11/05/16 07:42 Red Blood Count 3.39 MIL/MM3 (4.00-5.30) Hemoglobin 9.7 GM/DL (11.6-15.3) Hematocrit 30.3 % (35.0-46.0) Mean Corpuscular Hemoglobin Concent 31.9 % (32.0-36.0) Red Cell Distribution Width 17.4 % (11.6-17.2) Monocytes (%) (Auto) 9.8 % (0.0-8.0) Platelet Morphology Comment ENLARGED (NORMAL) Ovalocytes 1+ (NORMAL) Blood Urea Nitrogen 23 MG/DL (7-18) Creatinine 1.04 MG/DL (0.50-1.00) Random Glucose 70 MG/DL (74-106) Calcium Level 7.9 MG/DL (8.5-10.1) Potassium Level 3.4 MEQ/L (3.5-5.1) Chloride Level 114 MEQ/L (98-107) Carbon Dioxide Level 20.8 MEQ/L (21.0-32.0) Estimat Glomerular Filtration Rate 54 ML/MIN (>89) Imaging Last Impressions Chest X-Ray 11/03/16 0600 Signed Impressions: Service Date/Time: Thursday, November 03, 2016 03:19 - CONCLUSION: 1. Stable left lower lung zone airspace disease. 2. Stable right mid and lower lung zone atelectasis/scarring. 3. No significant interval change. Rehan León MD Head CT 11/01/16 0000 Signed Impressions: Service Date/Time: Tuesday, November 01, 2016 15:20 - CONCLUSION: Negative for an acute process. Jason Zafar MD FACR Abdomen/Pelvis CT 10/31/16 0000 Signed Impressions: Service Date/Time: Monday, October 31, 2016 20:39 - CONCLUSION: 1. Abnormal bowel gas pattern with areas of wall thickening involving the ascending, transverse and portions of the descending colon. The findings are most consistent with colitis. 2. Bilateral renal calculi left greater than right as well as apparent multiple stones in the distal right ureter with no definite hydronephrosis. 3. Soft tissue mass in the right side of the pelvis agent 3.8 x 2.8 cm in diameter faint areas of calcification. This is nonspecific . 4. Sclerotic foci in the right ilium which is nonspecific. This could represent a large bone island. 5. The study is suboptimal secondary to lack of intravenous and oral contrast. Satinder Joseph MD PE at Discharge General: No acute distress. Heart: Regular rate and rhythm. No murmur. Lungs: Clear to auscultation bilaterally. No wheezes, rales, or rhonchi. Breathing is nonlabored. Abdomen: Soft, nontender, nondistended. Extremities: No lower extremity edema. Psych: Alert and oriented. Pt update on day of discharge The patient has no complaints at this time. She wants to go home. Per nursing, patient is ambulating well and requires only minimal assistance to get out of bed. Hospital Course The patient was admitted for management of colitis, likely related abnormalities , sepsis. She was continued on antibiotics. Infectious disease, gastroenterology , nephrology were consulted. EGD was done and showed AVMs, which were cauterized. Colonoscopy showed findings consistent with colitis, pseudomembranous versus ischemic. The patient's symptoms improved and gastroenterology signed off. She was continued on IV fluids and her renal function improved. Electrolytes were replaced. Nephrology signed off. Antibiotics were discontinued by infectious disease as pathology and 2 stool tests were negative for C. difficile. Pt Condition on Discharge: Stable Discharge Disposition: Discharge Home Discharge Time: > 30 minutes Discharge Instructions DIET: Follow Instructions for: As Tolerated, No Restrictions Activities you can perform: Regular-No Restrictions Follow up Referrals: Gastroenterology - 1 Week with Yuri Kelly MD PCP Follow-up - 1 Week New Medications: Potassium Phosphate Monobasic (K-Phos) 500 Mg Tab 500 MG PO DAILY for Electrolyte Replacement, #30 TAB 0 Refills Continued Medications: Adalimumab 2-Pack Inj (Humira 2-Pack Inj) 40 Mg/0.8 Ml Syr 40 MG SQ Q10D, #2 KIT Atorvastatin (Atorvastatin) 10 Mg Tab 10 MG PO HS for Cholesterol Management, #30 TAB 0 Refills Hydroxychloroquine (Hydroxychloroquine) 200 Mg Tab 200 MG PO DAILY, #30 TAB 0 Refills Takw with food Levothyroxine (Levothyroxine) 112 Mcg Tab 112 MCG PO DAILY for Thyroid, #30 TAB 0 Refills Lisinopril (Lisinopril) 2.5 Mg Tab 2.5 MG PO DAILY, #30 TAB 0 Refills Metoprolol Tartrate (Metoprolol Tartrate) 25 Mg Tab 25 MG PO BID, #60 TAB 0 Refills Prednisone (Prednisone) 5 Mg Tab 5 MG PO DAILY, TAB 0 Refills Topiramate (Topamax) 25 Mg Tab 25 MG PO BID for Control Seizures, #60 TAB 0 Refills Tramadol ER 24 HR (Tramadol ER 24 HR) 300 Mg Benny 300 MG PO DAILY for Pain Management, #30 TAB 0 Refills Discontinued Medications: Acyclovir (Acyclovir) 400 Mg Tab 400 MG PO BID for Mgmt Viral Infection, TAB 0 Refills Pregabalin (Lyrica) 50 Mg Cap 50 MG PO BID, #60 CAP 0 Refills Adair Schmid MD Nov 05, 2016 12:52
[2016-11-05] MEDS ORDERED: METO25TA3 PO (13:05)
[2016-11-05 13:10] VITALS: O2SAT 96
== END 2016-11-05 13:58 | disposition home or self-care (01) | DRG 871 ==
LOC: NEPC 18:08 → NEDA 20:56 → HIMN 22:15 → N04B 11-05 00:13 → UNDODISIN 11-05 00:16
PROVIDERS: ADMIT Family Medicine; ATTEND Family Medicine
PROC: 0D598ZZ Destruction of Duodenum, Via Natural or Artificial Opening Endoscopic (ICD-10-PCS; 2016-11-02)
PROC: 0DBM8ZX Excision of Descending Colon, Via Natural or Artificial Opening Endoscopic, Diagnostic (ICD-10-PCS; principal; 2016-11-02 09:52)
PROC: 0DBN8ZX Excision of Sigmoid Colon, Via Natural or Artificial Opening Endoscopic, Diagnostic (ICD-10-PCS; 2016-11-02 09:52)
DX: A41.9 Sepsis, unspecified organism (principal); R57.1 Hypovolemic shock; G92 Toxic encephalopathy; E87.2 Acidosis; N17.9 Acute kidney failure, unspecified; K55.9 Vascular disorder of intestine, unspecified; F17.210 Nicotine dependence, cigarettes, uncomplicated; E87.5 Hyperkalemia; M06.9 Rheumatoid arthritis, unspecified; I10 Essential (primary) hypertension; E03.9 Hypothyroidism, unspecified; E83.51 Hypocalcemia; E87.6 Hypokalemia; E78.5 Hyperlipidemia, unspecified; G62.9 Polyneuropathy, unspecified; K52.9 Noninfective gastroenteritis and colitis, unspecified; E86.0 Dehydration; N20.0 Calculus of kidney; Q27.33 Arteriovenous malformation of digestive system vessel; Z79.52 Long term (current) use of systemic steroids; K59.00 Constipation, unspecified; K44.9 Diaphragmatic hernia without obstruction or gangrene
CPT/HCPCS: 36600; 51702; 70450; 71010; 74176; 80048; 80053; 80307; 81001; 82140; 82436; 82550; 82570; 82805; 82948; 83605; 83690; 83735; 84100; 84132; 84133; 84155; 84300; 84436; 84443; 85007; 85014; 85018; 85025; 85027; 85610; 85730; 86850; 86900; 86901; 87040; 87086; 87205; 87328; 87329; 87493; 87497; 87506; 87641; 88305; 93005; 96361; 96365; 96368; 96375; J0610; J0692; J0744; J1720; J1815; J2543; J3370; J3411; J3480; J7030; J7042; J7050; J7070; J7512